=== PATIENT | female | born 1965 | race Caucasian/White ===

== ENCOUNTER 2023-10-14 15:04 | Outpatient (RCR) | payer MEDICARE, MEDICAID, SELFPAY | END 2023-11-21 11:41 | disposition home or self-care (01) | LOC: PT 15:04 | PROVIDERS: PCP Nurse Practitioner Family; Visit Provider Nurse Practitioner Family | DX: R29.898 Other symptoms and signs involving the musculoskeletal system (principal) | CPT/HCPCS: 97110; 97112; 97163 ==

== ENCOUNTER 2024-01-25 11:12 | Outpatient (OUT) | payer MEDICARE, MEDICAID, SELFPAY ==
--- OUTSIDE RECORDS SUMMARY | 2024-01-25 11:33 | XMS_ITS | CCD ---
Author Organization [facility] Care Team Providers Care Charging Car Operator Name Role Phone NANCY MACK Attending Unavailable NANCY MACK Consulting Unavailable NANCY MACK Admitting Unavailable TOMEKA SCHNEIDER V Consulting Unavailable Nan Rueda Consulting Unavailable Hannah Damico Consulting Unavailable Mehreen Henry Unavailable [facility], Bakari Qureshi Primary Care Provider MD Eloy Roa Attending Provider Unavailable Unavailable Unavailable Allergies Allergy Classification Reported Allergen(s) Allergy Type Date of Onset Reaction(s) Facility (2 sources) Penicillins Allergy to substance 4 Hives [facility] (2 sources) Serotonin Reuptake Inhibitors (Ssris) Propensity to adverse reactions 0 Unknown Reaction [facility] (2 sources) Serotonin 5HT-3 Antagonists Allergy to substance 4 Unknown Reaction [facility] Medications Current Medications Medication Drug Class(es) Dates Sig (Normalized) Sig (Original) ARIPiprazole 15 mg oral tablet (2 sources) Atypical Antipsychotic Start: 09-30-2023 take 1 tablet by mouth once daily Aripiprazole (Abilify) 15 mg tablet Active 15 MG PO Daily September 30, 2023 12:00am Abilify Active benztropine mesylate 0.5 mg oral tablet (2 sources) Anticholinergic, Antihistamine Start: 06-21-2018 End: 01-04-2020 take 0.5 mg by mouth every six hours Benztropine Active 0.5 MG Oral Q6H June 21, 2018 12:02pm docusate sodium 100 mg oral capsule (2 sources) Start: 05-16-2018 End: 09-30-2023 take 100 mg by mouth once daily Docusate Sodium Active 100 MG Oral Daily May 16, 2018 9:15am Glucometer (1 source) Start: 03-24-2017 Glucometer as directed BID Mar, Active haloperidol 1 mg oral tablet (1 source) Typical Antipsychotic Start: 01-04-2020 take 1 mg by mouth three times daily Haloperidol Active 1 MG PO Three times daily January 04, 2020 12:00am hydroCHLOROthiazide 12.5 mg / lisinopril 20 mg oral tablet (1 source) Thiazide Diuretic, Angiotensin Converting Enzyme Inhibitor Start: 09-30-2023 take 2 tablets by mouth once daily Lisinopril-Hydr ochlorothiazide Active 2 TAB PO Daily September 30, 2023 12:00am lidocaine 0.05 mg/mg medicated patch (2 sources) Antiarrhythmic, Amide Local Anesthetic Start: 10-31-2018 End: 01-04-2020 apply 1 dose topically once daily Lidocaine Active 1 PATCH Topical Daily 7 October 31, 2018 11:04am leave on most painful area for 12 hrs lisinopril 2.5 mg oral tablet (3 sources) Angiotensin Converting Enzyme Inhibitor Start: 05-16-2018 take 5 mg by mouth once daily Lisinopril Active 5 MG Oral Daily May 16, 2018 12:16pm Start: 05-16-2018 End: 09-30-2023 take 10 mg by mouth once daily Lisinopril Discontinued 10 MG PO Daily May 16, 2018 1:00am September 30, 2023 2:27pm take 1 tablet by benji th once daily Lisinopril 2.5 MG 1 tablet Once a day Orally 30 day(s) Active magnesium oxide 400 mg oral tablet (2 sources) Start: 10-31-2018 End: 01-04-2020 take 400 mg by mouth once daily Magnesium Oxide Active 400 MG Oral Daily 30 October 31, 2018 10:58am metFORMIN hydrochloride 1000 mg oral tablet (3 sources) Biguanide Start: 04-07-2017 take 1000 mg by mouth twice daily Metformin Active 1000 MG PO Twice daily May 16, 2018 1:00am mirtazapine 15 mg oral tablet (2 sources) Start: 06-03-2018 End: 01-04-2020 take 45 mg by mouth once daily at bedtime Mirtazapine Active 45 MG Oral Daily at bedtime 42 14 June 03, 2018 10:58am 24 hr NIFEdipine 90 mg extended release oral tablet (3 sources) Dihydropyridine Calcium Channel Jarred Start: 09-30-2023 take 90 mg by mouth once daily Nifedipine Active 90 MG PO Daily September 30, 2023 12:00am Start: 01-04-2020 End: 09-30-2023 take 60 mg by mouth once daily Nifedipine Discontinued 60 MG PO Daily January 04, 2020 12:00am September 30, 2023 2:24pm Procardia Active omeprazole 20 mg delayed release oral capsule (2 sources) Proton Pump Inhibitor Start: 10-10-2018 End: 01-04-2020 take 20 mg by mouth once daily Omeprazole Active 20 MG Oral Daily October 10, 2018 2:11pm swallow whole; do not crush, chew, dissolve, or cut/break promethazine hydrochloride 25 mg oral tablet (2 sources) Phenothiazine Start: 10-10-2018 End: 01-04-2020 take 25 mg by mouth every four to six hours Promethazine Active 25 MG Oral EVERY 4-6 HOURS October 10, 2018 2:11pm QUEtiapine 100 mg oral tablet (4 sources) Atypical Antipsychotic Start: 10-31-2018 End: 01-04-2020 take 100 mg by mouth three times daily Quetiapine Active 100 MG Oral Three times daily 90 October 31, 2018 10:58am Start: 06-21-2018 End: 10-31-2018 take 200 mg by mouth three times daily Quetiapine Discontinued 200 MG PO Three times daily June 21, 2018 1:00am October 31, 2018 11:03am Start: 05-16-2018 End: 06-03-2018 take 1 tablet by mouth at bedtime Quetiapine (Seroquel) 300 mg Tablet Discontinued 300 MG PO Bedtime May 16, 2018 1:00am June 03, 2018 11:59am rosuvastatin calcium 10 mg oral tablet (1 source) HMG-CoA Reductase Inhibitor Start: 09-30-2023 take 10 mg by mouth once daily Rosuvastatin Active 10 MG PO Daily September 30, 2023 12:00am sucralfate 1000 mg oral tablet (2 sources) Aluminum Complex Start: 10-10-2018 End: 01-04-2020 take 1 g by mouth four times daily 1 hour(s) before bedtime Sucralfate Active 1 GM Oral Four times daily 112 October 10, 2018 2:11pm administer 1 hour before meals and at bedtime Completed/Discontinued Medications Medication Drug Class(es) Dates Sig (Normalized) Sig (Original) ALPRAZolam 1 mg oral tablet (2 sources) Benzodiazepine Start: 05-16-2018 End: 06-03-2018 take 1 mg by mouth four times daily Alprazolam Discontinued 1 MG PO Four times daily May 16, 2018 1:00am June 03, 2018 11:59am amLODIPine 5 mg oral tablet (2 sources) Dihydropyridine Calcium Channel Jarred Start: 05-16-2018 End: 05-16-2018 take 5 mg by mouth once daily Amlodipine Discontinued 5 MG PO Daily May 16, 2018 1:00am May 16, 2018 1:15pm aspirin 81 mg oral tablet (1 source) Platelet Aggregation Inhibitor, Nonsteroidal Anti-inflammatory Drug take 1 tablet by mouth once daily Baby Aspirin 81 MG 1 tablet Orally Once a day Not-Taking 24 hr buPROPion hydrochloride 150 mg extended release oral tablet (3 sources) Aminoketone Start: 01-05-2020 End: 09-30-2023 take 450 mg by mouth once daily Bupropion Hcl Discontinued 450 MG PO Daily January 05, 2020 12:00am September 30, 2023 2:28pm Start: 05-16-2018 take 300 mg by mouth once anusha y Bupropion Hcl Active 300 MG Oral Daily May 16, 2018 9:15am Start: 05-16-2018 End: 01-05-2020 take 1 tablet by mouth once daily Bupropion Hcl (Wellbutrin Sr) 150 mg Tablet Sustained-Release 12 Hr Discontinued 450 MG PO Daily May 16, 2018 1:00am January 05, 2020 6:20am cephalexin 500 mg oral capsule (1 source) Cephalosporin Antibacterial Start: 10-10-2018 End: 10-31-2018 take 1 capsule by mouth twice daily Cephalexin (Keflex) 500 mg capsule Discontinued 500 MG PO Twice daily 14 October 10, 2018 12:00am October 31, 2018 11:03am chlorproMAZINE hydrochloride 50 mg oral tablet (1 source) Phenothiazine Thorazine 50 mg tab po one in AM, one at 5pm and 2 tabs at HS Not-Taking cholecalciferol 0.125 mg oral capsule (1 source) Vitamin D Start: 06-03-2018 End: 10-10-2018 take 5000 [IU] by mouth once daily Cholecalciferol (Vitamin D3) Discontinued 5000 UNIT PO Daily 14 June 03, 2018 1:00am October 10, 2018 10:38am DELETED Baclofen 2%, Cyclobenzaprine HCl 2%, Diclofenac Na 3%, Gabapentin 6%, Lidocaine HCl 2% (1 source) Start: 06-23-2017 DELETED Baclofen 2%, Cyclobenzaprine HCl 2%, Diclofenac Na 3%, Gabapentin 6%, Lidocaine HCl 2% as directed Topical apply 1-2 gm every 6-8 hours as needed for pain relief for 30 days Jun, Not-Taking diclofenac sodium 0.01 mg/mg topical gel (1 source) Nonsteroidal Anti-inflammatory Drug Start: 12-07-2017 Diclofenac Sodium 1 % as directed Transdermal APPLY 1-2 GRAM EVERY 6-8 HOURS NEEDED FOR PAIN RELIEF for 100 GRAM Nov, Not-Taking gabapentin 600 mg oral tablet (4 sources) Anti-epileptic Agent Start: 06-16-2017 End: 05-16-2018 take 600 mg by mouth three times daily Gabapentin Discontinued 600 MG PO Three times daily May 16, 2018 1:00am May 16, 2018 1:15pm glipiZIDE 10 mg oral tablet (2 sources) Sulfonylurea Start: 05-16-2018 End: 10-10-2018 take 10 mg by mouth twice daily Glipizide Discontinued 10 MG PO Twice daily May 16, 2018 1:00am October 10, 2018 10:38am nortriptyline 25 mg oral capsule (2 sources) Tricyclic Antidepressant Start: 05-16-2018 End: 06-03-2018 take 1 capsule by mouth once daily Nortriptyline (Pamelor) 25 mg Capsule Discontinued 75 MG PO Daily May 16, 2018 1:00am June 03, 2018 11:59am take 3 capsules by m outh every twenty-four hours Nortriptyline HCl 25 mg 3 capsules Orall y Once a day Not-Taking OLANZapine 5 mg oral tablet (2 sources) Atypical Antipsychotic Start: 06-21-2018 End: 10-10-2018 take 5 mg by mouth once daily at bedtime Olanzapine Discontinued 5 MG PO Daily at bedtime June 21, 2018 1:00am October 10, 2018 10:39am take 2 tablets by mo uth once daily at bedtime ZyPREXA 5 mg 2 tablet Orally QHS Not-Jose M ing OXcarbazepine 150 mg oral tablet (1 source) Anti-epileptic Agent Start: 01-04-2020 End: 09-30-2023 take 150 mg by mouth twice daily Oxcarbazepine Discontinued 150 MG PO Twice daily January 04, 2020 12:00am September 30, 2023 2:27pm pramipexole dihydrochloride 0.125 mg oral tablet (1 source) Nonergot Dopamine Agonist Start: 01-04-2020 End: 09-30-2023 take 0.125 mg by mouth once daily at bedtime Pramipexole Discontinued 0.125 MG PO Daily at bedtime January 04, 2020 12:00am September 30, 2023 2:27pm propranolol hydrochloride 10 mg oral tablet (1 source) beta-Adrenergic Jarred Start: 01-04-2020 End: 09-30-2023 take 10 mg by mouth once daily Propranolol Discontinued 10 MG PO Daily January 04, 2020 12:00am September 30, 2023 2:27pm SITagliptin 100 mg oral tablet (1 source) Dipeptidyl Peptidase 4 Inhibitor Start: 04-07-2017 take 1 tablet by mouth every twenty-four hours Januvia 100 MG 1 tablet Orally Once a day for 30 day(s) Mar, Not-Taking tiZANidine 4 mg oral tablet (1 source) Central alpha-2 Adrenergic Agonist Start: 01-04-2020 End: 09-30-2023 Tizanidine Discontinued 4 MG PO every 6 to 8 hours January 04, 2020 12:00am September 30, 2023 2:27pm traZODone hydrochloride 50 mg oral tablet (5 sources) Serotonin Reuptake Inhibitor Start: 01-04-2020 End: 09-30-2023 take 150 mg by mouth once daily at bedtime Trazodone Discontinued 150 MG PO Daily at bedtime January 04, 2020 10:32pm September 30, 2023 2:28pm Start: 10-31-2018 End: 01-04-2020 take 50 mg by mouth once daily at bedtime Trazodone Active 50 MG Oral Daily at bedtime October 31, 2018 10:58am Start: 06-03-2018 End: 10-31-2018 take 100 mg by mouth once daily at bedtime Trazodone Discontinued 100 MG PO Daily at bedtime 14 June 03, 2018 1:00am October 31, 2018 11:03am take 1 tablet by benji once daily at bedtime as needed traZODone HCl 200 mg 1 tablet at bedtime as needed Orally Once a day Not-Taking trifluoperazine 5 mg oral tablet (1 source) Phenothiazine Start: 06-03-2018 End: 06-21-2018 take 5 mg by mouth once daily at bedtime Trifluoperazine Discontinued 5 MG PO Daily at bedtime 14 June 03, 2018 1:00am June 21, 2018 1:02pm Problems Active Problems Problem Classification Problem Date Documented Date Episodic/Chronic Acute and unspecified renal failure (1 source) Acute renal failure syndrome; Translations: [Acute kidney injury] Episodic Anxiety disorders (3 sources) Panic disorder; Translations: [Anxiety] 01-05-2020 Chronic Chronic kidney disease (3 sources) Chronic kidney disease stage 3; Translations: [Stage 3 chronic kidney disease] 01-05-2020 Chronic Coagulation and hemorrhagic disorders (1 source) Thrombocytopenic disorder; Translations: [Thrombocytopenia, unspecified] 10-28-2018 Chronic Crushing injury or internal injury (1 source) Injury of kidney; Translations: [Acute kidney injury] Episodic Diabetes mellitus with complications (2 sources) Type 2 diabetes mellitus; Translations: [Type 2 diabetes mellitus with diabetic nephropathy] 09-30-2023 Chronic Diabetes mellitus without complication (4 sources) Diabetes mellitus; Translations: [Diabetes mellitus without complication] 01-05-2020 Chronic Diseases of white blood cells (1 source) Leukocytosis; Translations: [Elevated white blood cell count, unspecified] 01-05-2020 Chronic Disorders of lipid metabolism (2 sources) Hyperlipidemia; Translations: [Hyperlipidemia, unspecified] 01-05-2020 Chronic Essential hypertension (3 sources) Hypertensive disorder; Translations: [Hypertension, unspecified] 01-05-2020 Chronic Fluid and electrolyte disorders (8 sources) Hyponatremia; Translations: [Metabolic acidosis, increased anion gap (IAG)] 10-30-2018 Episodic Hepatitis (1 source) Chronic hepatitis C; Translations: [Chronic viral hepatitis C] Chronic Hepatitis (3 sources) Viral hepatitis C; Translations: [Unspecified viral hepatitis C without hepatic coma] 10-28-2018 Episodic Hypertension with complications and secondary hypertension (2 sources) Hypertensive renal disease; Translations: [Hypertensive chronic kidney disease with stage 1 through stage 4 chronic kidney disease, or unspecified chronic kidney disease] 09-30-2023 Chronic Mood disorders (3 sources) Recurrent major depression; Translations: [Major depressive disorder, recurrent, unspecified] 10-28-2018 Chronic Nausea and vomiting (1 source) Nausea; Translations: [Chemotherapy-induced nausea] Episodic Nonspecific chest pain (4 sources) Chest pain, unspecified; Translations: [Other chest pain] Onset: 05-28-2020 Episodic Nutritional deficiencies (2 sources) Vitamin D deficiency; Translations: [Vitamin D deficiency, unspecified] 09-30-2023 Chronic Nutritional deficiencies (2 sources) Decreased vitamin D; Translations: [Other specified abnormal findings of blood chemistry] 05-22-2018 Episodic Other circulatory disease (2 sources) Low blood pressure; Translations: [Hypotension, unspecified] 10-28-2018 Episodic Other hereditary and degenerative nervous system conditions (1 source) Restless legs; Translations: [Restless leg] Chronic Other liver diseases (2 sources) Alkaline phosphatase raised; Translations: [Abnormal levels of other serum enzymes] 05-22-2018 Episodic Other liver diseases (2 sources) ALT (SGPT) level raised; Translations: [Elevated alanine aminotransferase (ALT) level] 05-22-2018 Episodic Other nervous system disorders (2 sources) Disorder of brain; Translations: [Encephalopathy, unspecified] 10-30-2018 Chronic Other nervous system disorders (1 source) Chronic pain; Translations: [Other chronic pain] Chronic Other nervous system disorders (1 source) Neuropathy; Translations: [Polyneuropathy, unspecified] Chronic Other nutritional; endocrine; and metabolic disorders (2 sources) Hypomagnesemia; Translations: [Hypomagnesemia] 10-30-2018 Chronic Other nutritional; endocrine; and metabolic disorders (3 sources) Obesity; Translations: [Obesity (BMI 30-39.9)] 05-22-2018 Chronic Other nutritional; endocrine; and metabolic disorders (1 source) Psychogenic polydipsia; 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] 01-06-2020 Episodic Other screening for suspected conditions (not mental disorders or infectious disease) (2 sources) Platelet count below reference range; Translations: [Abnormal coagulation profile] Onset: 05-30-2020 Episodic Other upper respiratory infections (1 source) Sinusitis; Translations: [Chronic infection of sinus NOS] Chronic Residual codes; unclassified (1 source) Sleep apnea; Translations: [Sleep apnea, unspecified] Chronic Residual codes; unclassified (2 sources) Altered mental status; Translations: [Altered mental status, unspecified] 10-27-2018 Episodic Spondylosis; intervertebral disc disorders; other back problems (2 sources) Degeneration of lumbar intervertebral disc; Translations: [Other intervertebral disc degeneration, lumbar region] Chronic Substance-related disorders (4 sources) Nicotine dependence, cigarettes, uncomplicated; Translations: [Drug abuse] Onset: 05-30-2020 Chronic Unclassified (1 source) Other abnormal findings in urine; Translations: [OTHER ABNORMAL FINDINGS IN URINE] Onset: 05-30-2020 Past or Other Problems Problem Classification Problem Date Documented Date Episodic/Chronic Administrative/social admission (1 source) Counseling procedure with explicit context; Translations: [Tobacco abuse counseling] Episodic Headache; including migraine (1 source) Bilateral headache; Translations: [Bilateral headaches] Episodic Heart valve disorders (1 source) Heart murmur; Translations: [Heart murmur] Episodic Immunizations and screening for infectious disease (1 source) Contact with and (suspected) exposure to other viral communicable diseases Onset: 08-21-2021 Resolved: 08-21-2021 Episodic Influenza (1 source) Influenza due to other identified influenza virus with other respiratory manifestations Onset: 08-21-2021 Resolved: 08-21-2021 Episodic Other connective tissue disease (2 sources) Pain in limb; Translations: [Lower extremity pain, right] Episodic Other connective tissue disease (1 source) Myofascial pain; Translations: [Myalgia] Episodic Other nervous system disorders (1 source) Tremor; Translations: [Tremor] Episodic Other non-traumatic joint disorders (1 source) Ankle pain; Translations: [Pain in unspecified ankle and joints of unspecified foot] Episodic Residual codes; unclassified (1 source) Sleep deprivation; Translations: [Problems related to lack of adequate sleep] Episodic Spondylosis; intervertebral disc disorders; other back problems (1 source) Low back pain; Translations: [Low back pain] Episodic Results Test Name Value Interpretation Reference Range Facility Patient Letter FTon 2020 Patient Letter [facility] [place] December 19, 2020 CASSY VALLEJO [address] [address] CASSY VALLEJO 1965 Dear Cassy, This is a SECOND ATTEMPT to remind you that you are due for an appointment with Dr. Baumann or Dr. Zuleta. Please call [facility] at [phone] to schedule an appointment at your earliest convenience. Thank you, [facility] Normal [facility] Reminderson 12-19-2020 Reminders - From: Melinda Hernández MA To: [facility] - Reminders/Recalls; Sent: 02/09/2020 07:53:13 EDT Show up: 11/13/2020 07:53:00 EDT Subject: BAD REMINDER RECALL DECEMBER 2020 Due Date/Time: 12/13/2020 07:53:00 EDT Reminder/Recall DR BAUMANN 3 YR COLON 12/30/2020 first recall letter second recall letter Normal [facility] Patient Letter FTMCon 2020 Patient Letter FT November 13, 2020 CASSY VALLEJO [address] [place] [address] CASSY VALLEJO 1965 Dear Cassy, This is a reminder that you are due for an appointment with Dr. Baumann or Dr. Zuleta. Please call [facility] at [phone] to schedule an appointment at your earliest convenience. Thank you, [facility] Reminder returned. Undeliverable. No forwarding address. Normal [facility] CULTURE URINEon 05-30-2020 CULTURE URINE Isolate 1 Escherichia coli >100,000 cfu/ml of ORGANISM 1 Escherichia coli ANTIBIOTIC M.I.C RX STATUS Ampicillin >=32 R F Ampicillin/Sulbactam >=32 R F Piperacillin/Tazobactam <=4 S F Cefazolin <=4 S F Ceftazidime <=1 S F Ceftriaxone <=1 S F Ertapenem <=0.5 S F Imipenem <=0.25 S F Amikacin <=2 S F Gentamicin <=1 S F Tobramycin <=1 S F Ciprofloxacin <=0.25 S F Levofloxacin 1 S F Nitrofurantoin <=16 S F Trimethoprim/Sulfamethox azole <=20 S F Normal [facility] Comment on above: Performed By: #### U RCX #### [facility] [id number] ABD/PELVIS WO CONon 05-28 CT ABD/PELVIS WO CON EXAMINATION: CT ABD/PELVIS WO CON HISTORY: Left flank pain. COMPARISON: None. TECHNIQUE: CT examination of the abdomen and pelvis without IV contrast. Coronal and sagittal reformations were performed. Dose reduction techniques were achieved by using automated exposure control and/or adjustment of mA and/or kV according to patient size and/or use of iterative reconstruction technique. FINDINGS: The lung bases are clear. Lower mediastinal structures are normal. The liver, spleen, adrenal glands, pancreas, gallbladder show normal unenhanced characteristics. The margins of the liver are mildly lobulated. The kidneys are symmetric in size and show no calcifications or hydronephrosis. No stones are seen in the ureters. Scattered calcified plaque is seen in the aorta and branch vessels. The large and small bowel are normal caliber. A normal appendix is seen in the right lower quadrant. Surgical changes of hysterectomy. The urinary bladder is normal. There is no free air or free fluid and no inflammatory stranding is seen. No suspicious or destructive bone lesions are seen. Note is made of an intramuscular lipoma in the right gluteal muscles. IMPRESSION: Unremarkable evaluation of urinary tract system. No abnormality is seen to clearly account for the symptoms. Mild lobulations in the contour the liver. This is of uncertain etiology but might indicate early changes of cirrhosis. This should be correlated with appropriate labs and clinical evaluation. Electronically authenticated by: NAN RUEDA Date: 2020-05-28 13:57 Normal [facility] CTA CHEST WO W CONon 020 CTA CHEST WO W CON EXAMINATION: CTA CHEST WO W CON HISTORY: CHEST PAIN, UNSPECIFIED , shortness of breath, elevated d-dimer COMPARISON: No relevant comparison available. TECHNIQUE: Axial, Coronal, and Sagittal images were created without and with IV contrast. Dose reduction techniques were achieved by using automated exposure control and/or adjustment of mA and/or kV according to patient size and/or use of iterative reconstruction technique. 66 mL Omnipaque 350 FINDINGS: LUNGS: Scattered subcentimeter pulmonary nodules, the largest is subpleural in location measuring 5 x 4 mm posterior right upper lobe axial image #18. PLEURA: No mass, effusion, or pneumothorax. VASCULATURE: Suboptimal opacification of the central pulmonary arterial tree with no definite filling defects BASILIO: No mass or adenopathy. MEDIASTINUM: No mass or adenopathy. CARDIAC: No enlargement, pericardial thickening, or significant calcification. AORTA: No aneurysm or dissection. CHEST WALL: No mass or axillary adenopathy. BONES: No bone lesion or fracture. LIMITED ABDOMEN: 1.4 cm mass medial limb of the left adrenal gland. Nodular hepatic contour suggesting hepatocellular disease OTHER: Negative. IMPRESSION: No central pulmonary embolus Scattered subcentimeter pulmonary nodules the largest 5 x 4 mm the right upper lobe, nonspecific Electronically authenticated by: TOMEKA SCHNEIDER Date: 2020-05-28 15:10 Normal [facility] D-DIMERon 05-28-2020 D-DIMER COMMENTS SEE BELOW Normal [facility] Comment on above: Result Comment: Incr eases in D-Dimer concentration observed with thromboembolic events can be variable due to localization, size, and age of the thrombus. Therefore, a thromboembolic event cannot be diagnosed with certainty on the basis of the reference range. D-Dimers may also be elevated for a variety of disorders including: advanced age, , coronary disease, cancer, liver disease, infection, inflammation, hematoma, DIC, trauma, post-surgery, diabetes, thrombolytic or anticoagulant therapy, stress, and generalized hospitalization. Performed By: #### D DIM #### [facility] [address] [place] [address] Finnjesus Fong Fibrin D-dimer FEU IA (Bld) [Mass/Vol] 0.74 mg/L FEU Critically high 0.19-0.50 [facility] Comment on above: Result Comment: Test repeated. Critical value verified. Performed By: #### D DIM #### [facility] [address] [place] [address] Finn Hetal ER URINE PROFILEon 0 Bilirubin [Mass/Vol] Negative Normal NEGATIVE [facility] Comment on above: Performed By: #### U MICRO, ERUR #### [facility] [address] [place] [address] Finn Hetal BLOOD MODERATE Abnormal NEGATIVE [facility] Comment on above: Performed By: #### U MICRO, ERUR #### [facility] [address] [place] [address] Finn Hetal Clarity (U) CLEAR Normal CLEAR [facility] Comment on above: Performed By: #### U MICRO, ERUR #### [facility] [address] [place] [address] Finn Hetal Color (U) YELLOW Normal YELLOW [facility] Comment on above: Performed By: #### U MICRO, ERUR #### [facility] [address] [place] [address] Finn Hetal ERUAHD A micrscopic examina tion will be performed if indicated. Normal [facility] Comment on above: Performed By: #### U MICRO, ERUR #### [facility] [address] [place] [address] Finn Hetal Glucose [Mass/Vol] Negative Normal NEGATIVE [facility] Comment on above: Performed By: #### U MICRO, ERUR #### [facility] [address] [place] [address] Finn Hetal Ketones Ql (U) Negative Normal NEGATIVE [facility] Comment on above: Performed By: #### U MICRO, ERUR #### [facility] [address] [place] [address] Finn Hetal Nitrite Ql (U) Positive Abnormal NEGATIVE [facility] Comment on above: Performed By: #### U MICRO, ERUR #### [facility] [address] [place] [address] Finn Hetal pH (Bld) 6.0 Normal 5-9 [facility] Comment on above: Performed By: #### U MICRO, ERUR #### [facility] [address] [place] [address] Finn Hetal Protein (U) [Mass/Vol] 100 mg/dL Abnormal NEGATIVE/ TRACE [facility] Comment on above: Performed By: #### U MICRO, ERUR #### [facility] [address] [place] [address] Finn Hetal SPEC GRAVITY >=1.030 Abnormal 1.005-<=1.025 [facility] Comment on above: Performed By: #### U MICRO, ERUR #### [facility] [address] [place] [address] Finnjesus Fong UR MICRO IND INDICATED Normal [facility] Comment on above: Performed By: #### U MICRO, ERUR #### [facility] [address] [place] [address] Finnjesus Fong Urobilinogen Qn (U) 0.2 EU/dl Normal 0.2 - 1.0 [facility] Comment on above: Performed By: #### U MICRO, ERUR #### [facility] [address] [place] [address] Finnjesus Fong WBC (Bld) [#/Vol] Negative Normal NEGATIVE [facility] Comment on above: Performed By: #### U MICRO, ERUR #### [facility] [address] [place] [address] Finn Hetal URINE MICROSCOPIC ONLYon Bacteria LM.HPF (Urine sed) [#/Area] MODERATE Abnormal NONE SEEN [facility] Comment on above: Performed By: #### U MICRO, ERUR #### [facility] [address] [place] [address] Finn Hetal CAST NONE SEEN Normal NONE SEEN [facility] Comment on above: Performed By: #### U MICRO, ERUR #### [facility] [address] [place] [address] Finn Hetal Crystals LM Nom (Urine sed) NONE SEEN Normal NONE SEEN [facility] Comment on above: Performed By: #### U MICRO, ERUR #### [facility] [address] [place] [address] Finn Hetal CULTURE INDICATED Normal [facility] Comment on above: Performed By: #### U MICRO, ERUR #### [facility] [address] [place] [address] Finn Hetal Epithelial cells LM.HPF (Urine sed) [#/Area] FEW Abnormal NONE SEEN /RARE [facility] Comment on above: Performed By: #### U MICRO, ERUR #### [facility] [address] [place] [address] Finn Hetal MUCOUS TRACE Abnormal NONE SEEN [facility] Comment on above: Performed By: #### U MICRO, ERUR #### [facility] [address] [place], [place] [address] Finn Fong RBC (U) [#/Vol] 2-5 Abnormal 0-2 [facility] Comment on above: Performed By: #### U MICRO, ERUR #### [facility] [address] [place], [place] [address] Finn Fong WBC (Bld) [#/Vol] 5-10 Abnormal NONE SEEN [facility] Comment on above: Performed By: #### U MICRO, ERUR #### [facility] [address] [place], [place] [address] Finn Fong XR CHEST 1 Von 05-28-2020 XR CHEST 1 V EXAM: XR CHEST 1 V 05/28/2020. HISTORY: CHEST PAIN, UNSPECIFIED COMPARISON: None. FINDINGS: Cardiomediastinal contours are within normal limits. No dense consolidation, effusion, edema, failure or pneumothorax based on frontal image alone. No acute osseous abnormality. Retrocardiac region is somewhat difficult to accurately evaluate due to underpenetration. IMPRESSION: No acute cardiopulmonary process based on frontal image alone. Electronically authenticated by: HANNAH DAMICO Date: 2020-05-28 13:24 Normal [facility] PROGRESSon 11-16-2018 Protein mass conc HNO ID: [id number] Author: Ezra Murray Service: ? Author Type: Physician Type: Progress Notes Filed: 11/16/2018 1:53 PM Note Text: Cassy Vallejo : 1965 Retirement: [facility] PCP: esperanza Date of Last Visit: 10/31 PAST MEDICAL HISTORY Diagnosis Date - Anxiety - Chronic viral hepatitis (HCC) - Depression - Difficulty walking - Edema - Essential hypertension - Fibromyalgia - GERD (gastroesophageal reflux disease) - Hyperlipidemia - Metabolic encephalopathy - Onychomycosis - Pain in toes of both feet - Panic disorder - Suicidal ideations - Type II diabetes mellitus (HCC) Current Outpatient Medications: tuberculin (TUBERSOL) 5 tub. unit /0.1 mL injection 5 Units by INTRADERMAL route one time only. lisinopril (ZESTRIL, PRINIVIL) 10 mg tablet Take 10 mg by mouth once daily. omeprazole (PRILOSEC) 20 mg capsule Take 20 mg by mouth once daily. buPROPion XL (WELLBUTRIN XL) 300 mg 24 hr tablet Take 300 mg by mouth once daily. magnesium oxide 400 mg magnesium cap Take by mouth. mirtazapine (REMERON) 45 mg tablet Take 45 mg by mouth daily at bedtime. benztropine (COGENTIN) 0.5 mg tablet Take 0.5 mg by mouth twice daily. gabapentin (NEURONTIN) 600 mg tablet Take 600 mg by mouth three times daily. QUEtiapine (SEROQUEL) 200 mg tablet Take 200 mg by mouth twice daily. traZODone (DESYREL) 100 mg tablet Take 100 mg by mouth daily at bedtime. ondansetron (ZOFRAN) 4 mg tablet Take 4 mg by mouth every 8 hours as needed. sucralfate (CARAFATE) 1 gram tablet Take 1 g by mouth four times daily. metFORMIN (GLUCOPHAGE) 1,000 mg tablet Take 1,000 mg by mouth daily with breakfast. No current facility-administered medications for this visit. ALLERGIES Allergen Reactions - Penicillins Unknown Subjective: Cassy is a 53 year old female year old DIABETIC who presents today for evaluation and treatment of painful digital nail deformities as well as generalized foot care. The patient has been unable to provide self nail care due to the severe nature of deformity which causes pressure and limits the patient's ability to walk in shoe gear without pain. Patient has attempted self debridement using a pumice stone and specialized nail instrument with no success. Patient advised not to attempt self care. Class B Findings: Decrease or absence of hair growth, Skin texture (thin, shiny) and Nail changes (thickening) Objective: Each digital nail on the right 1 and the left 1 is elongated, thickened, ridged, lysing with friable subungual debris which, after debridement to underlying nail bed, reveals a characteristic fungal/yeast/mold odor and consistency. There is no surrounding cellulitis, deep incurvation, or evidence of bacterial infection. Class findings include diminished pedal pulses, lack of digital/pedal hair growth, the above noted nail changes, some telangectasias and lower leg edema bilaterally. Lower Extremity Edema: yes: b/l Assessment: Symptomatic onychomycosis digital nails toes 1 Rt 1 Lt. Examination of individual toenails: R5 is normal. R4 is normal. R3 is normal. R2 is normal. R1 is brittle, discolored, dystrophic, elongated, painful, yellow with subungual debris. L1 is brittle, discolored, dystrophic, elongated, painful, yellow, with subungual debris. L2 is normal. L3 is normal. L4 is normal. L5 is normal. Plan: The offending nail margins were mechanically and electrically debrided to the level of normal underlying nail bed with good relief obtained as evidenced by pain free palpation of the digits. The patient will be followed to maintain the length and thickness of their nails as best as possible. Patient relates painful ambulation. We will see her back on an as needed basis or sooner should problems arise. Ezra Murray DPM Encounter Diagnosis ICD-10-CM 1. Pain due to onychomycosis of toenail of left foot B35.1 DEBRIDEMENT OF NAIL(S), 1-5 M79.675 2. Pain due to onychomycosis of toenail of right foot B35.1 DEBRIDEMENT OF NAIL(S), 1-5 M79.674 3. Diabetes mellitus without complication (HCC) E11.9 DEBRIDEMENT OF NAIL(S), 1-5 Normal [facility] SURGICAL PATHOLOGYon 018 SURGICAL PATHOLOGY Specimen #: [id number] Physician: CLARITA GARIBAY M.D. [place] [id number] (01/11/2018)Liver, biopsy (A1-1 thru A1-3 and associated special stains)- Cirrhosis with changes consistent with steatohepatitis.COMMENTT manuel you for allowing us the opportunity to review this case inconsultation representing the liver biopsy from Cassy Vallejo, a [id number] with a history of hepatic fibrosis.The liver biopsy demonstrates a single core of hepatic parenchyma withextensive macrovesicular steatosis comprising approximately 70% of theparenchymal volume. A few ballooned hepatocytes are identified. No Malloryhyaline is identified. There is mild to moderate portal/septal and lobularinflammation composed of small, mature appearing lymphocytes. Nocholestasis or bile duct injury is observed. No interface activity isobserved. The interlobular bile ducts show no significant injury. Centralveins are unremarkable. The iron stain is negative for storage iron. Thetrichrome stain highlights bridging fibrosis and early cirrhosis.Overall, the feature are consistent with steatohepatitis with bridgingfibrosis and early cirrhosis. Steatohepatitis is a pattern of injury seenmost commonly with metabolic disease, obesity, diabetes, hyperlipidemia,and secondary to toxins/drugs. Correlation with clinical and serologicfindings remains essential. Thank you for sending this case in consultation. Please do not hesitate tocontact the GI Consultation Service at [phone] with questions or ifadditional follow up information becomes available. This case was reviewedin conjunction with the GI pathology fellow, Bobbi Coe D.O./RW//01-19-2018Santana Ceballos M.D., Ph.D.(Electronic Signature) SPECIMEN SUBMITTEDA: 10 SLIDES [id number] CLINICAL DATAHepatic fibrosis.Patient ID #: Date of Report: 01/20/2018Date of Procedure: 01/18/2018Date of Receipt: 01/18/2018Submitted by: CLARITA GARIBAY M.D.Location: Diagnostic interpretation performed at [facility], [address] [place] [address]. Normal [facility] Comment on above: Performed By: #### S ####See report for performing lab information. Vital Signs Date Time Vital Sign Value Performing Clinician Facility 09-30-2023 14:040 Body height 162.56 cm [facility] [employer] [facility] 09-30-2023 14:21-0400 Body mass index (BMI) [Ratio] 41.2 kg/m2 [facility] Work Phone: [facility] 09-30-2023 14:21-0400 Body temperature 96.4 [degF] [facility] Work Phone: [facility] 09-30-2023 14:21-0400 Body weight 108.97 kg [facility] Work Phone: [facility] 09-30-2023 14:21-0400 Diastolic blood pressure 80 mm[Hg] [facility] Work Phone: [facility] 09-30-2023 14:21-0400 Heart rate 102 /min [facility] Work Phone: [facility] 09-30-2023 14:21-0400 Respiratory rate 16 /min [facility] Work Phone: [facility] 09-30-2023 14:21-0400 SaO2% (BldA) [Mass fraction] 96 % [facility] Work Phone: [facility] 09-30-2023 14:21-0400 Systolic blood pressure 115 mm[Hg] [facility] Work Phone: [facility] 08-21-2021 15:00-0500 Body height 160.02 cm Mehreen Henry Other [facility] Other 08-21-2021 15:00-0500 Body mass index (BMI) [Ratio] 43.4 kg/m2 Mehreen Henry Other [facility] Other 08-21-2021 15:00-0500 Body temperature 98.6 [degF] Mehreen Henry Other [facility] Other 08-21-2021 15:00-0500 Body weight 111.13 kg Mehreen Henry Other [facility] Other 08-21-2021 15:00-0500 Respiratory rate 18 /min Mehreen Henry Other [facility] Other 08-21-2021 15:00-0500 SaO2% (BldA) [Mass fraction] 97 % Mehreen Henry Other [facility] Other Encounters Encounter Date Encounter Type Care Provider Facility Start: 09-30-2023 End: 09-30-2023 ambulatory [facility] Work Phone: [facility] Work Phone: Start: 09-30-2023 End: 09-30-2023 Patient encounter procedure [facility] Work Phone: [facility] Work Phone: Start: 07-28-2023 Registered Recurring [facility] Work Phone: [facility] Start: 08-21-2021 End: 08-21-2021 ambulatory Mehreen Henry Other [facility] Other Start: 08-21-2021 Office outpatient vi sit 15 minutes Mehreen Henry [facility] Start: 05-28-2020 End: 05-28-2020 Patient encounter procedure NANCY MACK Facility: Plan of Treatment Date Care Activity Detail Author Renal function 1999 panel - Serum or Plasma [facility] enter US Kidney - bilateral [facility] Payers Date Payer Category Payer Unknown [id number] 1958 Medicaid [id number] 1958 Medicare [id number] Self-pay Self Pay [id number] Unknown [id number] Social History Date Type Detail Facility Tobacco smoking status [facility] Unknown if ever smoked [facility] Start: 1965 Sex Assigned At Female F [facility] Sex Assigned At Sex Assigned At Bir th [facility] Other Start: 09-30-2023 Tobacco smoking status NHIS Smoker (finding) [facility] Medical Equipment Procedure Code Equipment Code Equipment Origin al Text Equipment Identifier Dates Start: 03-24-2017 Goals Date Patient Goal Desired Activity /State Evaluation note 09-30-2023 Note Date & Type Note Facility 09-30-2023 Evaluation note Diagnosis Onset Date Chronic kidney disease, stage 3a acute Hypertensive nephropathy acu te Type 2 diabetes mellitus wit h diabetic nephropathy acute Vitamin D deficiency acute [facility] Work Phone: Evaluation note 08-21-2021 Note Date & Type Note Facility 08-21-2021 Evaluation note Encounter Date Diagnosis Assessment Notes Aug, Contact with and (suspected) exposure to other viral communicable diseases (ICD-10 - Z20.828) Aug, Influenza A (ICD-10 - J10.1) Drink plenty fluids, get plenty of rest. Take Tylenol or Motrin for aches pains or fevers. Follow-up with your family physician if no improvement in 2 to 3 days. Aug, Other Additional time spent conducting pre-visit phone call, screening for symptoms, instructions on social distancing, application and removal of PPE, and cleaning of examination room, equipment and supplies was preformed. Patient education given for testing methodology and results. Patient care instructions given in writting by [facility] Care At Home document. [facility] Other History general Narrative - Reported Note Date & Type Note Facility History general Narrative - Reported Type Medical History RLS Medical History HTN Medical History anxiety d/o Medical History depression Medical History diabetes mellitus Surgical History J CARLOS Surgical History wisdom teeth Surgical History tonsillectomy Hospitalization History depression Hospitalization History psych 12/2016 [facility] Other Summary Purpose Family History Relationship Condition Age at Onset Recorded Date/T [place] Not Specified Hypertension Unknown Relationship Condition Age at Onset Recorded Date/T [place] father Multiple myeloma Unknown father Malignant neoplasm Unknown Unknown Not Specified Hypertension Unknown Family history of mental disorder Unknown Advance Directives Advance Directive Response Recorded Date/ Time Advance Directives No December 01 10:07am Assessments No Assessments Information Available Chief Complaint and Reason for Visit Chief Complaint BH RENAL CKD 3 Reason for Visit Chronic kidney disea se, stage 3a Hypertensive nephropathy Type 2 diabetes mellitus with diabetic nephropathy Vitamin D deficiency Additional Source Comments INFORMATION SOURCE (unrecogn ized section and content) DATE CREATED AUTHOR 01/26/2018 [facility] DATE CREATED AUTHOR AUTHOR'S ORGANIZ ATION 11/21/2018 [facility] DATE CREATED AUTHOR AUTHOR'S ORGANIZ ATION 06/02/2020 [facility] DATE CREATED AUTHOR AUTHOR'S ORGANIZ ATION 12/20/2020 [facility] REASON FOR VISIT (unrecogniz ed section and content) BLACK STAN, SINUS CONGESTIO N, COUGH, SORE THROAT, H/A Care Teams (unrecognized sec tion and content) Team Status: Active Member Role Status Dates [facility] Primary Care Provider Active Team Status: Active Member Role Status Dates [facility] Primary Care Provider Active Start: July 28, 2023 Eloy Roa MD Attending Provider Active Start: July 28, 2023 Team Status: Inactive Member Role Status Dates [facility] Primary Care Provider Active Start: September 30, 2023 End: September 30, 2023 Monet Villagran MD Attending Provider Active Star t: September 30, 2023 End: September 30, 2023 Goals (unrecognized section and content) Goals may be documented in a n alternate section FOR RECORDS PERTAINING TO PATIENTS WHO ARE OR HAVE BEEN ENROLLED IN A CHEMICAL DEPENDENCY/SUBSTANCEABUSE PROGRAM, SOME INFORMATION MAY BE OMITTED. This clinical summary was aggregated from multiple sources. Caution should be exercised in using it in the provision of clinical care. This summary normalizes information from multiple sources, and as a consequence, information in this document may materially change the coding, format and clinical context of patient data. In addition, data may be omitted in some cases. CLINICAL DECISIONS SHOULD BE BASED ON THE PRIMARY CLINICAL RECORDS. [facility] [employer] [facility]. provides no warranty or guarantee of the accuracy or completeness of information in this document.
[2024-01-25 11:38] LABS: Hematocrit 40.5 % (36.0-48.0); Hemoglobin 13.9 g/dL (12.0-16.0); Mean Corpuscular HGB Conc 34.3 g/dL (29.9-35.2); Mean Corpuscular Hemoglobin 31.7 pg (26.7-34.0); Mean Corpuscular Volume 92.5 fL (81.0-99.0); Mean Platelet Volume 8.3 fL (9.5-13.5); Platelet Count 248 10^3/uL (150-450); Red Blood Count 4.38 10^6/uL (4.20-5.40); Red Cell Distribution Width 12.1 % (11.0-15.0); White Blood Count 13.3 10^3/uL (4.0-11.0)
[2024-01-25 11:52] LABS: Bilirubin Urine NEGATIVE (NEGATIVE); Blood Urine SMALL (NEGATIVE); Clarity Urine CLEAR (CLEAR); Color Urine LT. YELLOW (YELLOW); Glucose Urine UA NEGATIVE (NEGATIVE); Ketones Urine NEGATIVE (NEGATIVE); Leukocyte Esterase Urine TRACE (NEGATIVE); Nitrite Urine NEGATIVE (NEGATIVE); Protein Urine NEGATIVE (NEG/TRACE); Urobilinogen Urine 0.2 EU/dL (0.2-1.0)
[2024-01-25 12:20] LABS: Creatinine Urine Random 46.72 mg/dL (20.00-300.00); Protein Creatinine Ratio Urine 0.19; Total Protein Urine Random 8.8 mg/dL (<=11.9)
[2024-01-25 12:27] LABS: Anion Gap 14.3; BUN Creatinine Ratio 18.3; Calcium 9.4 mg/dL (8.5-10.1); Carbon Dioxide 26.3 mmol/L (21.0-32.0); Chloride 94 mmol/L (98-107); Estimated GFR (African America 51 (>=60); Estimated GFR (Non-African Ame 42 (>=60); Glucose 125 mg/dL (74-106); Magnesium 1.5 mg/dL (1.8-2.4); Phosphorus 3.3 mg/dL (2.6-4.7); Potassium 3.6 mmol/L (3.5-5.1); Sodium 131 mmol/L (136-145); Uric Acid 7.9 mg/dL (2.6-6.0)
[2024-01-26 10:11] LABS: PTH, Intact 39 pg/mL (15-65)
[2024-01-26 16:16] LABS: Microalbumin Urine Random <1.3 mg/dL (<=30.0)
== END 2024-01-25 11:13 | disposition home or self-care (01) ==
LOC: LAB 11:12
PROVIDERS: PCP Nurse Practitioner Family; Visit Provider Internal Medicine Nephrology
DX: I12.9 Hypertensive chronic kidney disease with stage 1 through stage 4 chronic kidney disease, or unspecified chronic kidney disease (principal); N18.31 Chronic kidney disease, stage 3a; E11.21 Type 2 diabetes mellitus with diabetic nephropathy
CPT/HCPCS: 36415; 80069; 81003; 82043; 82306; 82570; 83735; 83970; 84156; 84550; 85027

== ENCOUNTER 2024-01-27 09:33 | Outpatient (OUT) | payer MEDICARE, MEDICAID, SELFPAY ==
--- NOTE | 2024-01-27 09:43 | US_ITS ---
[address] [address] Patient Name: CASSY JOSEPH MRN: [id number] date: 1965 Sex: F Assigned Patient Location: US Current Patient Location: LAB Accession/Order Number: [id number] Exam Date: 01/27/2024 09:45 Report Date: 02/01/2024 07:26 At the request of: NON-STAFF PHYSICIAN Procedure: US renal BI EXAMINATION: US renal BI HISTORY: Stage 3A Chronic Kidney Disease COMPARISON: No relevant comparison available. TECHNIQUE: Ultrasound examination was performed of the bladder. FINDINGS: Right Kidney: Normal in size, contour and echotexture. 1.3 cm area of anechoic echogenicity in the lower pole, cortical cyst. The cortex measures 0.9 cm. No solid cortical mass or hydronephrosis. Height: 4.83 cm Length: 11.35 cm Width: 4.26 cm Left Kidney: Normal in size, contour and echotexture. 1.0 cm area of anechoic echogenicity in the upper pole, cortical cyst. The cortex measures 0.7 cm. No solid cortical mass or hydronephrosis Height: 4.54 cm Length: 10.63 cm Width: 4.87 cm Urinary bladder is normal. Volume 218 cc US/US renal BI IMPRESSION: Bilateral renal cortical atrophy Electronically authenticated by: TOMEKA SCHNEIDER Date: 02/01/2024 07:26
--- OUTSIDE RECORDS SUMMARY | 2024-01-27 09:46 | XMS_ITS | CCD ---
Author Organization [facility] Care Team Providers Care [employer] Mechanic Name Role Phone NANCY MACK Attending Unavailable NANCY MACK Consulting Unavailable NANCY MACK Admitting Unavailable TOMEKA SCHNEIDER V Consulting Unavailable Nan Rueda Consulting Unavailable Hannah Damico Consulting Unavailable Mehreen Henry Unavailable [facility], [facility] Qureshi Primary Care Provider MD Eloy Roa Attending Provider Unavailable Unavailable Unavailable Allergies Allergy Classification Reported Allergen(s) Allergy Type Date of Onset Reaction(s) Facility (2 sources) Penicillins Allergy to substance 4 Hives [facility] (2 sources) Serotonin Reuptake Inhibitors (Ssris) Propensity to adverse reactions 0 Unknown Reaction [facility] (2 sources) Serotonin 5HT-3 Antagonists Allergy to substance 4 Unknown Reaction [facility] Medications Current Medications Medication Drug [...] Facility Patient Letter FTon 2020 Patient Letter [facility] December 19, 2020 CASSY VALLEJO [address] [facility] [place] [address] CASSY VALLEJO 1965 Dear Cassy, This is a SECOND ATTEMPT to remind you that you are due for an appointment with Dr. Baumann or Dr. Zuleta. Please call [facility] at [phone] to schedule an appointment at your earliest convenience. Thank you, [facility] Normal [facility] Reminderson 12-19-2020 Reminders - From: Melinda Hernández MA To: [facility] - Reminders/Recalls; Sent: 02/09/2020 07:53:13 EDT Show up: 11/13/2020 07:53:00 EDT Subject: BAD REMINDER RECALL DECEMBER 2020 Due Date/Time: 12/13/2020 07:53:00 EDT Reminder/Recall DR BAUMANN 3 YR COLON 12/30/2020 first recall letter second recall letter Normal [facility] Patient Letter FTMCon 2020 Patient Letter FT November 13, 2020 CASSY VALLEJO [address] [place] [address] CASSY VALLEJO 1965 Dear Cassy, This is a reminder that you are due for an appointment with Dr. Baumann or Dr. Zuleta. Please call [facility] at [phone] to schedule an appointment at your earliest convenience. Thank you, [facility] Reminder returned. Undeliverable. No forwarding address. Normal [facility] CULTURE URINEon 05-30-2020 CULTURE URINE Isolate 1 [...] F Trimethoprim/Sulfamethox azole <=20 S F Normal [facility] Comment on above: Performed By: #### U RCX #### [facility] [id number] ABD/PELVIS WO CONon 05-28 [...] NAN RUEDA Date: 2020-05-28 13:57 Normal [facility] CTA CHEST WO W CONon 020 [...] TOMEKA SCHNEIDER Date: 2020-05-28 15:10 Normal [facility] D-DIMERon 05-28-2020 D-DIMER COMMENTS SEE BELOW Normal [facility] Comment on above: Result Comment: Incr [...] hospitalization. Performed By: #### D DIM #### [facility] [address] [place] [address] Finnjesus Fong Fibrin D-dimer FEU IA (Bld) [Mass/Vol] 0.74 mg/L FEU Critically high 0.19-0.50 [facility] Comment on above: Result Comment: Test repeated. Critical value verified. Performed By: #### D DIM #### [facility] [address] [place] [address] Finn Hetal ER URINE PROFILEon 0 Bilirubin [Mass/Vol] Negative Normal NEGATIVE [facility] Comment on above: Performed By: #### U MICRO, ERUR #### [facility] [address] [place] [address] Finn Hetal BLOOD MODERATE Abnormal NEGATIVE [facility] Comment on above: Performed By: #### U MICRO, ERUR #### [facility] [address] [place] [address] Finn Hetal Clarity (U) CLEAR Normal CLEAR [facility] Comment on above: Performed By: #### U MICRO, ERUR #### [facility] [address] [place] [address] Finn Hetal Color (U) YELLOW Normal YELLOW [facility] Comment on above: Performed By: #### U MICRO, ERUR #### [facility] [address] [place] [address] Finn Hetal ERUAHD A micrscopic examina tion will be performed if indicated. Normal [facility] Comment on above: Performed By: #### U MICRO, ERUR #### [facility] [address] [place] [address] Finn Hetal Glucose [Mass/Vol] Negative Normal NEGATIVE [facility] Comment on above: Performed By: #### U MICRO, ERUR #### [facility] [address] [place] [address] Finn Hetal Ketones Ql (U) Negative Normal NEGATIVE [facility] [place] [facility] Comment on above: Performed By: #### U MICRO, ERUR #### [facility] [address] [place] [address] Finn Hetal Nitrite Ql (U) Positive Abnormal NEGATIVE [facility] [place] [facility] Comment on above: Performed By: #### U MICRO, ERUR #### [facility] [address] [place] [address] Finn Hetal pH (Bld) 6.0 Normal 5-9 [facility] Comment on above: Performed By: #### U MICRO, ERUR #### [facility] [address] [place] [address] Finn Hetal Protein (U) [Mass/Vol] 100 mg/dL Abnormal NEGATIVE/ TRACE [facility] Comment on above: Performed By: #### U MICRO, ERUR #### [facility] [address] [place] [address] Finn Hetal SPEC GRAVITY >=1.030 Abnormal 1.005-<=1.025 [facility] Comment on above: Performed By: #### U MICRO, ERUR #### [facility] [address] [place] [address] Finnjesus Fong UR MICRO IND INDICATED Normal [facility] Comment on above: Performed By: #### U MICRO, ERUR #### [facility] [address] [place] [address] Finnjesus Fong Urobilinogen Qn (U) 0.2 EU/dl Normal 0.2 - 1.0 [facility] Comment on above: Performed By: #### U MICRO, ERUR #### [facility] [address] [place] [address] Finnjesus Fong WBC (Bld) [#/Vol] Negative Normal NEGATIVE The [facility] Comment on above: Performed By: #### U MICRO, ERUR #### [facility] [address] [place] [address] Finn Hetal URINE MICROSCOPIC ONLYon Bacteria LM.HPF (Urine sed) [#/Area] MODERATE Abnormal NONE SEEN [facility] Comment on above: Performed By: #### U MICRO, ERUR #### [facility] [address] [place] [address] Finn Hetal CAST NONE SEEN Normal NONE SEEN [facility] Comment on above: Performed By: #### U MICRO, ERUR #### [facility] [address] [place] [address] Finn Hetal Crystals LM Nom (Urine sed) NONE SEEN Normal NONE SEEN [facility] Comment on above: Performed By: #### U MICRO, ERUR #### [facility] [address] [place] [address] Finn Hetal CULTURE INDICATED Normal [facility] Comment on above: Performed By: #### U MICRO, ERUR #### [facility] [address] [place] [address] Finn Hetal Epithelial cells LM.HPF (Urine sed) [#/Area] FEW Abnormal NONE SEEN /RARE [facility] Comment on above: Performed By: #### U MICRO, ERUR #### [facility] [address] [place] [address] Finn Hetal MUCOUS TRACE Abnormal NONE SEEN [facility] Comment on above: Performed By: #### U MICRO, ERUR #### [facility] [address] [place], [place] [address] Finn Fong RBC (U) [#/Vol] 2-5 Abnormal 0-2 [facility] Comment on above: Performed By: #### U MICRO, ERUR #### [facility] [address] [place], [place] [address] Finn Fong WBC (Bld) [#/Vol] 5-10 Abnormal NONE SEEN The [facility] Comment on above: Performed By: #### U MICRO, ERUR #### [facility] [address] [place], [place] [address] Finn Fong XR CHEST 1 Von 05-28-2020 [...] HANNAH DAMICO Date: 2020-05-28 13:24 Normal [facility] PROGRESSon 11-16-2018 Protein mass conc HNO ID: [id number] Author: Ezra Murray Service: ? Author Type: Physician Type: Progress Notes Filed: 11/16/2018 1:53 PM Note Text: Cassy Vallejo : 1965 Usp: [facility] PCP: esperanza Date of Last Visit: 10/31 [...] (HCC) E11.9 DEBRIDEMENT OF NAIL(S), 1-5 Normal [facility] SURGICAL PATHOLOGYon 018 SURGICAL PATHOLOGY Specimen #: [id number] Physician: CLARITA GARIBAY M.D. [place]; [id number] (01/11/2018)Liver, biopsy (A1-1 thru A1-3 and associated special stains)- Cirrhosis with changes consistent with steatohepatitis.COMMENTT manuel you for allowing us the opportunity to review this case inconsultation representing the liver biopsy from Cassy Vallejo, a [id number] with a history of hepatic fibrosis.The liver [...] hesitate tocontact the GI Consultation Service at [phone] with questions or ifadditional follow up information becomes available. This case was reviewedin conjunction with the GI pathology fellow, Bobbi Coe D.O./RW//01-19-2018Santana Ceballos M.D., Ph.D.(Electronic Signature) SPECIMEN SUBMITTEDA: 10 SLIDES [id number] CLINICAL DATAHepatic fibrosis.Patient ID #: Date of Report: 01/20/2018Date of Procedure: 01/18/2018Date of Receipt: 01/18/2018Submitted by: CLARITA GARIBAY M.D.Location: Diagnostic interpretation performed at [facility], [address] [place] [address]. Normal [facility] Comment on above: Performed By: #### S ####See report for performing lab information. Vital Signs Date Time Vital Sign Value Performing Clinician Facility 09-30-2023 14:040 Body height 162.56 cm [employer] [facility] 09-30-2023 14:21-0400 Body mass index (BMI) [Ratio] 41.2 kg/m2 [facility] Work Phone: [facility] 09-30-2023 14:21-0400 Body temperature 96.4 [degF] [facility] Work Phone: [facility] 09-30-2023 14:21-0400 Body weight 108.97 kg [facility] Work Phone: [facility] 09-30-2023 14:21-0400 Diastolic blood pressure 80 mm[Hg] [facility] Work [facility] 09-30-2023 14:21-0400 Heart rate 102 /min [facility] Work Phone: [facility] 09-30-2023 14:21-0400 Respiratory rate 16 /min [facility] Work Phone: [facility] 09-30-2023 14:21-0400 SaO2% (BldA) [Mass fraction] 96 % [facility] Work Phone: [facility] 09-30-2023 14:21-0400 Systolic blood pressure 115 mm[Hg] [facility] Work [facility] 08-21-2021 15:00-0500 Body height 160.02 cm Mehreen Henry Other [facility] Other 08-21-2021 15:00-0500 Body mass index (BMI) [Ratio] 43.4 kg/m2 Mehreen Henry Other [facility] Other 08-21-2021 15:00-0500 Body temperature 98.6 [degF] Mehreen Henry Other [facility] Other 08-21-2021 15:00-0500 Body weight 111.13 kg Mehreen Henry Other [facility] Other 08-21-2021 15:00-0500 Respiratory rate 18 /min Mehreen Henry Other [facility] Other 08-21-2021 15:00-0500 SaO2% (BldA) [Mass fraction] 97 % Mehreen Henry Other [facility] Other Encounters Encounter Date Encounter Type Care Provider Facility Start: 09-30-2023 End: 09-30-2023 ambulatory [facility] Work Phone: [facility] Work Phone: Start: 09-30-2023 End: 09-30-2023 Patient encounter procedure [facility] Work Phone: [facility] Work Phone: Start: 07-28-2023 Registered Recurring [facility]ari [facility] Work Phone: [facility] Start: 08-21-2021 End: 08-21-2021 ambulatory Mehreen Henry Other [facility] Other Start: 08-21-2021 Office outpatient vi sit 15 minutes Mehreen Henry [facility] Start: 05-28-2020 End: 05-28-2020 Patient encounter procedure NANCY MACK Facility: Plan of Treatment Date Care Activity Detail Author Renal function 1999 panel - Serum or Plasma [facility] enter US Kidney - bilateral [facility] Payers Date Payer Category Payer Unknown [id number] 1958 Medicaid [id number] 1958 Medicare [id number] Self-pay Self Pay [id number] Unknown [id number] Social History Date Type Detail Facility Tobacco smoking status [facility] Unknown if ever smoked [facility] Start: 1965 Sex Assigned At Female F [facility] Sex Assigned At Sex Assigned At Bir th [facility] Other Start: 09-30-2023 Tobacco smoking status NHIS Smoker (finding) [facility] Medical Equipment Procedure Code Equipment Code Equipment Origin al Text Equipment Identifier Dates Start: 03-24-2017 Goals Date Patient Goal Desired Activity /State Evaluation note 09-30-2023 Note Date & Type Note Facility 09-30-2023 Evaluation note Diagnosis Onset Date Chronic kidney disease, stage 3a acute Hypertensive nephropathy acu te Type 2 diabetes mellitus wit h diabetic nephropathy acute Vitamin D deficiency acute [facility] Work Phone: Evaluation note 08-21-2021 Note Date [...] Patient care instructions given in writting by [facility] At Home document. [facility] Other History general Narrative - Reported Note Date & Type Note Facility History general Narrative - Reported Type Medical History RLS Medical History HTN Medical History anxiety d/o Medical History depression Medical History diabetes mellitus Surgical History J CARLOS Surgical History wisdom teeth Surgical History tonsillectomy Hospitalization History depression Hospitalization History psych 12/2016 [facility] Other Summary Purpose Family History Relationship Condition [...] section and content) DATE CREATED AUTHOR 01/26/2018 [facility] DATE CREATED AUTHOR AUTHOR'S ORGANIZ ATION 11/21/2018 [facility] DATE CREATED AUTHOR AUTHOR'S ORGANIZ ATION 06/02/2020 [facility] DATE CREATED AUTHOR AUTHOR'S ORGANIZ ATION 12/20/2020 [facility] REASON FOR VISIT (unrecogniz ed section and content) BLACK STAN, SINUS CONGESTIO N, COUGH, SORE THROAT, H/A Care Teams (unrecognized sec tion and content) Team Status: Active Member Role Status Dates [facility] Active Team Status: Active Member Role Status Dates [facility] Primary Care Provider Active Start: July 28, 2023 Eloy Roa MD Attending Provider Active Start: July 28, 2023 Team Status: Inactive Member Role Status Dates [facility] Primary Care Provider Active Start: September 30, [...] BE BASED ON THE PRIMARY CLINICAL RECORDS. [facility]. provides no warranty or guarantee of the accuracy or completeness of information in this document.
== END 2024-01-27 09:34 | disposition home or self-care (01) ==
LOC: US 09:34
PROVIDERS: PCP Nurse Practitioner Family
DX: I12.9 Hypertensive chronic kidney disease with stage 1 through stage 4 chronic kidney disease, or unspecified chronic kidney disease (principal); N18.31 Chronic kidney disease, stage 3a; E11.21 Type 2 diabetes mellitus with diabetic nephropathy
CPT/HCPCS: 76775

== ENCOUNTER 2024-07-27 11:39 | Outpatient (OUT) | payer MEDICARE, MEDICAID, SELFPAY ==
--- OUTSIDE RECORDS SUMMARY | 2024-07-27 12:00 | XMS_ITS | CCD ---
Author Organization [facility] Care Team Providers Care Process Technician Name Role Phone NANCY MACK Attending Unavailable NANCY MACK Consulting Unavailable NANCY MACK Admitting Unavailable TOMEKA SCHNEIDER V Consulting Unavailable Nan Rueda Consulting Unavailable Hannah Damico Consulting Unavailable Mehreen Henry Unavailable [facility] Primary Care Provider [phone] MD Eloy Roa Attending Provider [phone] [facility] Primary Care Provider MD Eloy Roa Attending Provider [phone] Unavailable Unavailable Unavailable Allergies Allergy Classification Reported Allergen(s) Allergy Type Date of Onset Reaction(s) Facility (3 sources) Penicillins [facility] substance [facility] (3 sources) Serotonin Reuptake Inhibitors (Ssris) Propensity to adverse reactions 0 Unknown Reaction [facility] (3 sources) Serotonin 5HT-3 Antagonists Allergy to substance 4 Unknown Reaction [facility] Medications Current Medications Medication Drug Class(es) Dates Sig (Normalized) Sig (Original) ARIPiprazole 20 mg oral tablet (4 sources) Atypical Antipsychotic Start: 02-03-2024 take 20 mg by mouth once daily Aripiprazole Active 20 MG PO Daily February 03, 2024 12:00am Start: 09-30-2023 End: 02-03-2024 take 1 tablet by mouth once daily Aripiprazole (Abilify) 15 mg tablet Discontinued 15 MG PO Daily September 30, 2023 12:00am February 03, 2024 2:31pm Abilify Active gabapentin 600 mg oral tablet (6 sources) Anti-epileptic Agent Start: 06-03-2018 take 600 mg by mouth three times daily Gabapentin Active 600 MG PO Three times daily 42 June 03, 2018 1:00am Start: 06-16-2017 End: 05-16-2018 take 600 mg by mouth three times daily Gabapentin Discontinued 600 MG PO Three times daily May 16, 2018 1:00am May 16, 2018 1:15pm Glucometer (1 source) Start: 03-24-2017 Glucometer as directed BID Mar, Active haloperidol 1 mg oral tablet (2 sources) Typical Antipsychotic Start: 01-04-2020 take 1 mg by mouth three times daily Haloperidol Active 1 MG PO Three times daily January 04, 2020 12:00am hydroCHLOROthiazide 12.5 mg / lisinopril 20 mg oral tablet (2 sources) Thiazide Diuretic, Angiotensin Converting Enzyme Inhibitor Start: 09-30-2023 take 2 tablets by mouth once daily Lisinopril-[place] chlorothiazide Active 2 TAB PO Daily September 30, 2023 12:00am lisinopril 2.5 mg oral tablet (4 sources) Angiotensin Converting Enzyme Inhibitor Start: 05-16-2018 [...] Active magnesium oxide 400 mg oral tablet (4 sources) Start: 02-03-2024 take 400 mg by mouth once daily Magnesium Oxide Active 400 MG PO Daily February 03, 2024 12:00am Start: 10-31-2018 End: 01-04-2020 take 400 mg by mouth once daily Magnesium Oxide Discontinued 400 MG PO Daily 30 October 31, 2018 12:00am January 04, 2020 11:48pm metFORMIN hydrochloride 1000 mg oral tablet (4 sources) Biguanide Start: 04-07-2017 take 1000 mg by mouth twice daily Metformin Active 1000 MG PO Twice daily May 16, 2018 1:00am 24 hr NIFEdipine 90 mg extended release oral tablet (5 sources) Dihydropyridine Calcium Channel Jarred Start: 09-30-2023 take 90 mg by mouth once daily Nifedipine Active 90 MG PO Daily September 30, 2023 12:00am Start: 01-04-2020 End: 09-30-2023 take 60 mg by mouth once daily Nifedipine Discontinued 60 MG PO Daily January 04, 2020 12:00am September 30, 2023 2:24pm Procardia Active rosuvastatin calcium 10 mg oral tablet (2 sources) HMG-CoA Reductase Inhibitor Start: 09-30-2023 take 10 mg by mouth once daily Rosuvastatin Active 10 MG PO Daily September 30, 2023 12:00am Completed/Discontinued Medications Medication Drug Class(es) Dates Sig (Normalized) Sig (Original) ALPRAZolam 1 mg oral tablet (3 sources) Benzodiazepine Start: 05-16-2018 End: 06-03-2018 take 1 mg by mouth four times daily Alprazolam Discontinued 1 MG PO Four times daily May 16, 2018 1:00am June 03, 2018 11:59am amLODIPine 5 mg oral tablet (3 sources) Dihydropyridine Calcium Channel Jarred Start: 05-16-2018 End: 05-16-2018 take 5 mg by mouth once daily Amlodipine Discontinued 5 MG PO Daily May 16, 2018 1:00am May 16, 2018 1:15pm aspirin 81 mg oral tablet (1 source) Platelet Aggregation Inhibitor, Nonsteroidal Anti-inflammatory Drug take 1 tablet by mouth once daily Baby Aspirin 81 MG 1 tablet Orally Once a day Not-Taking benztropine mesylate 0.5 mg oral tablet (3 sources) Anticholinergic, Antihistamine Start: 06-21-2018 End: 01-04-2020 take 0.5 mg by mouth every six hours Benztropine Discontinued 0.5 MG PO Q6H June 21, 2018 1:00am January 04, 2020 11:48pm 24 hr buPROPion hydrochloride 150 mg extended release oral tablet (5 sources) Aminoketone Start: 01-05-2020 End: 09-30-2023 take [...] 2020 6:20am cephalexin 500 mg oral capsule (2 sources) Cephalosporin Antibacterial Start: 10-10-2018 End: 10-31-2018 take [...] HS Not-Taking cholecalciferol 0.125 mg oral capsule (2 sources) Vitamin D Start: 06-03-2018 End: 10-10-2018 take [...] PAIN RELIEF for 100 GRAM Nov, Not-Taking docusate sodium 100 mg oral capsule (3 sources) Start: 05-16-2018 End: 09-30-2023 take 1 capsule by mouth once daily Docusate Sodium (Colace) 100 mg Capsule Discontinued 100 MG PO Daily May 16, 2018 1:00am September 30, 2023 2:28pm glipiZIDE 10 mg oral tablet (3 sources) Sulfonylurea Start: 05-16-2018 End: 10-10-2018 take 10 mg by mouth twice daily Glipizide Discontinued 10 MG PO Twice daily May 16, 2018 1:00am October 10, 2018 10:38am lidocaine 0.05 mg/mg medicated patch (3 sources) Antiarrhythmic, Amide Local Anesthetic Start: 10-31-2018 End: 01-04-2020 apply 1 dose topically once daily Lidocaine (Lidoderm) 5 % adhesive patch,medicated Discontinued 1 PATCH TOPICAL Daily 7 October 31, 2018 12:00am January 04, 2020 11:48pm leave on most painful area for 12 hrs mirtazapine 15 mg oral tablet (3 sources) Start: 06-03-2018 End: 01-04-2020 take 45 mg by mouth once daily at bedtime Mirtazapine Discontinued 45 MG PO Daily at bedtime 42 June 03, 2018 1:00am January 04, 2020 11:48pm nortriptyline 25 mg oral capsule (3 sources) Tricyclic Antidepressant Start: 05-16-2018 End: 06-03-2018 take 1 capsule by mouth once daily Nortriptyline (Pamelor) 25 mg Capsule Discontinued 75 MG PO Daily May 16, 2018 1:00am June 03, 2018 11:59am take 3 capsules by m outh every twenty-four hours Nortriptyline HCl 25 mg 3 capsules Orall y Once a day Not-Taking OLANZapine 5 mg oral tablet (3 sources) Atypical Antipsychotic Start: 06-21-2018 End: 10-10-2018 take 5 mg by mouth once daily at bedtime Olanzapine Discontinued 5 MG PO Daily at bedtime June 21, 2018 1:00am October 10, 2018 10:39am take 2 tablets by mo ut once daily at bedtime ZyPREXA 5 mg 2 tablet Orally QHS Not-Jose M ing omeprazole 20 mg delayed release oral capsule (3 sources) Proton Pump Inhibitor Start: 10-10-2018 End: 01-04-2020 take 20 mg by mouth once daily Omeprazole Discontinued 20 MG PO Daily October 10, 2018 12:00am January 04, 2020 11:49pm swallow whole; do not crush, chew, dissolve, or cut/break OXcarbazepine 150 mg oral tablet (2 sources) Anti-epileptic Agent Start: 01-04-2020 End: 09-30-2023 take 150 mg by mouth twice daily Oxcarbazepine Discontinued 150 MG PO Twice daily January 04, 2020 12:00am September 30, 2023 2:27pm pramipexole dihydrochloride 0.125 mg oral tablet (2 sources) Nonergot Dopamine Agonist Start: 01-04-2020 End: 09-30-2023 take 0.125 mg by mouth once daily at bedtime Pramipexole Discontinued 0.125 MG PO Daily at bedtime January 04, 2020 12:00am September 30, 2023 2:27pm promethazine hydrochloride 25 mg oral tablet (3 sources) Phenothiazine Start: 10-10-2018 End: 01-04-2020 take 25 mg by mouth every four to six hours Promethazine Discontinued 25 MG PO EVERY 4-6 HOURS October 10, 2018 12:00am January 04, 2020 11:49pm propranolol hydrochloride 10 mg oral tablet (2 sources) beta-Adrenergic Jarred Start: 01-04-2020 End: 09-30-2023 take 10 mg by mouth once daily Propranolol Discontinued 10 MG PO Daily January 04, 2020 12:00am September 30, 2023 2:27pm QUEtiapine 100 mg oral tablet (7 sources) Atypical Antipsychotic Start: 10-31-2018 End: 01-04-2020 take 100 mg by mouth three times daily Quetiapine Discontinued 100 MG PO Three times daily October 31, 2018 12:00am January 04, 2020 11:49pm Start: 06-21-2018 End: 10-31-2018 take 200 mg by mouth three times daily Quetiapine Discontinued 200 MG PO Three times daily June 21, 2018 1:00am October 31, 2018 11:03am Start: 05-16-2018 End: 06-03-2018 take 1 tablet by mouth at bedtime Quetiapine (Seroquel) 300 mg Tablet Discontinued 300 MG PO Bedtime May 16, 2018 1:00am June 03, 2018 11:59am SITagliptin 100 mg oral tablet (1 source) Dipeptidyl Peptidase 4 Inhibitor Start: 04-07-2017 take 1 tablet by mouth every twenty-four hours Januvia 100 MG 1 tablet Orally Once a day for 30 day(s) Mar, Not-Taking sucralfate 1000 mg oral tablet (3 sources) Aluminum Complex Start: 10-10-2018 End: 01-04-2020 take 1 tablet by mouth four times daily 1 hour(s) before bedtime Sucralfate (Carafate) 1 gram tablet Discontinued 1 GM PO Four times daily 112 October 10, 2018 12:00am January 04, 2020 11:49pm administer 1 hour before meals and at bedtime tiZANidine 4 mg oral tablet (2 sources) Central alpha-2 Adrenergic Agonist Start: 01-04-2020 End: 09-30-2023 Tizanidine Discontinued 4 MG PO every 6 to 8 hours January 04, 2020 12:00am September 30, 2023 2:27pm traZODone hydrochloride 50 mg oral tablet (8 sources) Serotonin Reuptake Inhibitor Start: 01-04-2020 End: 09-30-2023 take 150 mg by mouth once daily at bedtime Trazodone Discontinued 150 MG PO Daily at bedtime January 04, 2020 10:32pm September 30, 2023 2:28pm Start: 10-31-2018 End: 01-04-2020 take 50 mg by mouth once daily at bedtime Trazodone Discontinued 50 MG PO Daily at bedtime October 31, 2018 12:00am January 04, 2020 10:32pm Start: 06-03-2018 End: 10-31-2018 take 100 mg by mouth once daily at bedtime Trazodone Discontinued 100 MG PO Daily at bedtime June 03, 2018 1:00am October 31, 2018 11:03am take 1 tablet by benji th once daily at bedtime as needed traZODone HCl 200 mg 1 tablet at bedtime as needed Orally Once a day Not-Taking trifluoperazine 5 mg oral tablet (2 sources) Phenothiazine Start: 06-03-2018 End: 06-21-2018 take 5 mg by mouth once daily at bedtime Trifluoperazine Discontinued 5 MG PO Daily at bedtime June 03, 2018 1:00am June 21, 2018 1:02pm Problems Active Problems Problem Classification Problem Date Documented Date Episodic/Chronic Acute and unspecified renal failure (1 source) Acute renal failure syndrome; Translations: [Acute kidney injury] Episodic Anxiety disorders (5 sources) Panic disorder; Translations: [Anxiety] 01-05-2020 Chronic Chronic kidney disease (6 sources) Chronic kidney disease stage 3; Translations: [Stage 3 chronic kidney disease] 01-05-2020 Chronic Coagulation and hemorrhagic disorders (2 sources) Thrombocytopenic disorder; Translations: [Thrombocytopenia, unspecified] 10-28-2018 Chronic Crushing injury or internal injury (1 source) Injury of kidney; Translations: [Acute kidney injury] Episodic Diabetes mellitus with complications (4 sources) Type 2 diabetes mellitus; Translations: [Type 2 diabetes mellitus with diabetic nephropathy] 09-30-2023 Chronic Diabetes mellitus without complication (6 sources) Diabetes mellitus; Translations: [Diabetes mellitus without complication] 01-05-2020 Chronic Diseases of white blood cells (2 sources) Leukocytosis; Translations: [Elevated white blood cell count, unspecified] 01-05-2020 Chronic Disorders of lipid metabolism (3 sources) Hyperlipidemia; Translations: [Hyperlipidemia, unspecified] 01-05-2020 Chronic Essential hypertension (4 sources) Hypertensive disorder; Translations: [Hypertension, unspecified] 01-05-2020 Chronic Fluid and electrolyte disorders (13 sources) Hyponatremia; Translations: [Metabolic acidosis, increased anion gap (IAG)] 10-30-2018 Episodic Hepatitis (1 source) Chronic hepatitis C; Translations: [Chronic viral hepatitis C] Chronic Hepatitis (4 sources) Viral hepatitis C; Translations: [Unspecified viral hepatitis C without hepatic coma] 10-28-2018 Episodic Hypertension with complications and secondary hypertension (4 sources) Hypertensive renal disease; Translations: [Hypertensive chronic kidney disease with stage 1 through stage 4 chronic kidney disease, or unspecified chronic kidney disease] 09-30-2023 Chronic Mood disorders (5 sources) Recurrent major depression; Translations: [Major depressive disorder, recurrent, unspecified] 10-28-2018 Chronic Nausea and vomiting (1 source) Nausea; Translations: [Chemotherapy-induced nausea] Episodic Nonspecific chest pain (4 sources) Chest pain, unspecified; Translations: [Other chest pain] Onset: 05-28-2020 Episodic Nutritional deficiencies (4 sources) Vitamin D deficiency; Translations: [Vitamin D deficiency, unspecified] 09-30-2023 Chronic Nutritional deficiencies (3 sources) Decreased vitamin D; Translations: [Other specified abnormal findings of blood chemistry] 05-22-2018 Episodic Other circulatory disease (3 sources) Low blood pressure; Translations: [Hypotension, unspecified] 10-28-2018 Episodic Other hereditary and degenerative nervous system conditions (1 source) Restless legs; Translations: [Restless leg] Chronic Other liver diseases (3 sources) Alkaline phosphatase raised; Translations: [Abnormal levels of other serum enzymes] 05-22-2018 Episodic Other liver diseases (3 sources) ALT (SGPT) level raised; Translations: [Elevated alanine aminotransferase (ALT) level] 05-22-2018 Episodic Other nervous system disorders (3 sources) Disorder of brain; Translations: [Encephalopathy, unspecified] 10-30-2018 Chronic Other nervous system disorders (1 source) Chronic pain; Translations: [Other chronic pain] Chronic Other nervous system disorders (1 source) Neuropathy; Translations: [Polyneuropathy, unspecified] Chronic Other nutritional; endocrine; and metabolic disorders (3 sources) Hypomagnesemia; Translations: [Hypomagnesemia] 10-30-2018 Chronic Other nutritional; endocrine; and metabolic disorders (4 sources) Obesity; Translations: [Obesity (BMI 30-39.9)] 05-22-2018 Chronic Other nutritional; endocrine; and metabolic disorders (1 source) Hypomagnesemia; Translations: [Disorders of magnesium metabolism] 02-03-2024 Chronic Other nutritional; endocrine; and metabolic disorders (2 sources) Psychogenic polydipsia; 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] 01-06-2020 Episodic Other nutritional; endocrine; and metabolic disorders (1 source) Hyperuricemia; Translations: [Hyperuricemia without signs of inflammatory arthritis and tophaceous disease] 02-03-2024 Episodic Other nutritional; endocrine; and metabolic disorders (1 source) Hyperuricemia without signs of inflammatory arthritis and tophaceous disease; Translations: [Other abnormal blood chemistry] 02-03-2024 Episodic Other screening for suspected conditions (not mental disorders or infectious disease) (3 sources) Platelet count below reference range; Translations: [Abnormal coagulation profile] Onset: 05-30-2020 02-03-2024 Episodic Other upper respiratory infections (1 source) Sinusitis; Translations: [Chronic infection of sinus NOS] Chronic Residual codes; unclassified (1 source) Sleep apnea; Translations: [Sleep apnea, unspecified] Chronic Residual codes; unclassified (3 sources) Altered mental status; Translations: [Altered mental [...] Test Name Value Interpretation Reference Range Facility Erythrocyte distribution wid th Auto (RBC) [Ratio]on 01-25-2024 Erythrocyte distribution width (RBC) [Ratio] 12.1 % 11.0-15.0 [facility] Estimated glomerular filtrat ion rate (GFR) non- Americanon 01-25-2024 GFR/1.73 sq M.predicted among non-blacks MDRD (S/P/Bld) [Vol rate/Area] 42 mL/min/{1.73_m2} Low >=60 [facility] Hematocrit Auto (Bld) [Volum e fraction]on 01-25-2024 Hematocrit (Bld) [Volume fraction] 40.5 % 36.0-48.0 [facility] Hemoglobin [Mass/volume] in Bloodon 01-25-2024 Hemoglobin (Bld) [Mass/Vol] 13.9 g/dL 12.0-16.0 [facility] Laboratory - Chemistry and C hemistry - challengeon 01-25-2024 Albumin [Mass/Vol] 4.0 g/dL 3.4-5.0 [facility] Calcium [Mass/Vol] 9.4 mg/dL 8.5-10.1 [facility] Chloride [Moles/Vol] 94 mmol/L Low 98-107 [facility] CO2 [Moles/Vol] 26.3 mmol/L 21.0-32.0 [facility] Creatinine [Mass/Vol] 1.31 mg/dL High 0.55-1.02 [facility] GFR/1.73 sq M.predicted MDRD (S/P/Bld) [Vol rate/Area] 51 mL/min/{1.73_m2} Low >=60 [facility] Glucose [Mass/Vol] 125 mg/dL High 74-106 [facility] Magnesium [Mass/Vol] 1.5 mg/dL Low 1.8-2.4 [facility] Potassium [Moles/Vol] 3.6 mmol/L 3.5-5.1 [facility] Sodium [Moles/Vol] 131 mmol/L Low 136-145 [facility] Urate [Mass/Vol] 7.9 mg/dL High 2.6-6.0 [facility] Urea nitrogen [Mass/Vol] 24.0 mg/dL High 7.0-18.0 [facility] Urea nitrogen/Creatinine [Mass ratio] 18.3 mg/mg [facility] Bilirubin Ql (U) Negative NEGATIVE [facility] Glucose (U) [Mass/Vol] Negative NEGATIVE [facility] Ketones Ql (U) Negative NEGATIVE [facility] pH (U) 6.0 [pH] 5.0-9.0 [facility] Specific gravity (U) [Rel density] 1.010 1.005-1.025 [facility] Urobilinogen Qn (U) 0.2 {Emilee'U}/dL 0.2-1.0 [facility] Laboratory - Specimen inform ationon 01-25-2024 Appearance (U) CLEAR CLEAR [facility] Color (U) LT. YELLOW YELLOW [facility] Laboratory - Urinalysison Leukocyte esterase Test strip Ql (U) TRACE Abnormal NEGATIVE [facility] Nitrite Ql (U) Negative NEGATIVE [facility] Protein (U) [Mass/Vol] 8.8 mg/dL <=11.9 [facility] Protein Ql (U) Negative NEG/TRACE [facility] Leukocytes [#/volume] correc dee for nucleated erythrocytes in Blood by Automated counon 01-25-2024 WBC corrected for nucl RBC Auto (Bld) [#/Vol] 13.3 10 3/uL High 4.0-11.0 [facility] MCH Auto (RBC) [Entitic mass ]on 01-25-2024 MCH (RBC) [Entitic mass] 31.7 pg 26.7-34.0 [facility] MCHC Auto (RBC) [Mass/Vol]on 01-25-2024 MCHC (RBC) [Mass/Vol] 34.3 g/dL 29.9-35.2 [facility] MCV Auto (RBC) [Entitic vol] on 01-25-2024 MCV (RBC) [Entitic vol] 92.5 fL 81.0-99.0 [facility] Microalbumin [Mass/volume] i n Urineon 01-25-2024 Albumin DL <= 20 mg/L (U) [Mass/Vol] mg/dL <=30.0 [facility] No Panel Informationon 01-24 25-Hydroxy Vitamin D Total 50.5 ng/mL [facility] Comment on above: <20 ng/mL Vit D defi cient20-<30 ng/mL Vit D [id number] ng/mL Vit D sufficient>100 ng/mL Potential Toxicity Parathyroid Hormone (Intact) 39 pg/mL 15-65 [facility] Comment on above: Performed at: [facility] [address] [id number] Director: Fadi Pompa PhD, Phone: [phone] Phosphorus Level 3.3 mg/dL 2.6-4.7 [facility] Urine Occult Blood SMALL Abnormal NEGATIVE [facility] Urine Random Creatinine 46.72 mg/dL 20.00-300.00 [facility] Platelet mean volume Auto (B ld) [Entitic vol]on 01-25-2024 Platelet mean volume (Bld) [Entitic vol] 8.3 fL Low 9.5-13.5 [facility] Platelets Auto (Bld) [#/Vol] on 01-25-2024 Platelets (Bld) [#/Vol] 248 10 3/uL 150-450 [facility] RBC Auto (Bld) [#/Vol]on RBC (Bld) [#/Vol] 4.38 10 6/uL 4.20-5.40 [facility] Serum or plasma anion gap de terminationon 01-25-2024 Anion gap [Moles/Vol] 14.3 mmol/L [facility] Urine protein/creatinine rat ioon 01-25-2024 Protein/Creatinine (U) [Ratio] 0.19 [facility] Patient Letter FTon 2020 [place] [facility] (Inserted Image. Ruth ble to display) December 19, 2020 CASSY VALLEJO [address] [place] [address] CASSY VALLEJO 1965 Dear Cassy, This is a SECOND ATTEMPT to remind you that you are due for an appointment with Dr. Baumann or Dr. Zuleta. Please call [facility] at [phone] to schedule an appointment at your earliest convenience. Thank you, [facility] Reminderson 12-19-2020 Reminders - From: Melinda Hernández MA To: [facility] - Reminders/Recalls; Sent: 02/09/2020 07:53:13 EDT Show up: 11/13/2020 07:53:00 EDT Subject: [facility] REMINDER RECALL DECEMBER 2020 Due Date/Time: 12/13/2020 07:53:00 EDT Reminder/Recall DR BAUMANN 3 YR COLON 12/30/2020 first recall letter second recall letter Normal [facility] Patient Letter FTon 2020 Patient Letter [facility] [place] (Inserted Image. Ruth ble to display) November 13, 2020 CASSY VALLEJO [address] [place] [address] CASSY VALLEJO 1965 Dear Casys, This is a reminder that you are due for an appointment with Dr. Baumann or Dr. Zuleta. Please call [facility] at [phone] to schedule an appointment at your earliest convenience. Thank you, [facility] Reminder returned. Undeliverable. No forwarding address. Normal [facility] CULTURE URINEon 05-30-2020 CULTURE URINE Isolate [...] 1 S F Nitrofurantoin <=16 S F Trimethoprim/Sulfametho xazole <=20 S F Normal [facility] Comment on above: Performed By: #### U RCX #### [facility] [address] ABD/PELVIS WO CONon 05-28 [...] by: NAN RUEDA Date: 2020-05-28 13:57 Normal [facility] CTA CHEST WO W CONon 020 CTA CHEST WO W CON EXAMINATION: CTA [facility]ADEN ST WO W CON HISTORY: CHEST PAIN, UNSPECIFIED [...] TOMEKA SCHNEIDER Date: 2020-05-28 15:10 Normal [facility] D-DIMERon 05-28-2020 D-DIMER COMMENTS SEE BELOW Normal [facility] Comment on above: Result Comment: Incr eases [...] hospitalization. Performed By: #### D DIM #### [facility] [address] [place] [address] Finn Fong Fibrin D-dimer FEU IA (Bld) [Mass/Vol] 0.74 mg/L FEU Critically high 0.19-0.50 [facility] Comment on above: Result Comment: Test repeated. Critical value verified. Performed By: #### D DIM #### [facility] [address] [place] [address] Finnjesus Fong ER URINE PROFILEon 0 Bilirubin [Mass/Vol] Negative Normal NEGATIVE [facility] Comment on above: Performed By: #### U MICRO, ERUR #### [facility] [address] [place] [address] Finn Hetal BLOOD MODERATE Abnormal NEGATIVE [facility] Comment on above: Performed By: #### U MICRO, ERUR #### [facility] [address] [place] [address] Finnjesus Fong Clarity (U) CLEAR Normal CLEAR [facility] Comment on above: Performed By: #### U MICRO, ERUR #### [facility] [address] [place] [address] Finn Hetal Color (U) YELLOW Normal YELLOW [facility] Comment on above: Performed By: #### U MICRO, ERUR #### [facility] [address] [place] [address] Finn Hetal ERUAHD A micrscopic examination will be performed if indicated. Normal [facility] Comment on above: Performed By: #### U MICRO, ERUR #### [facility] [address] [place] [address] Finn Hetal Glucose [Mass/Vol] Negative Normal NEGATIVE [facility] Comment on above: Performed By: #### U MICRO, ERUR #### [facility] [address] [address] Finn Hetal Ketones Ql (U) Negative Normal NEGATIVE [facility] [place] [facility] Comment on above: Performed By: #### U MICRO, ERUR #### [facility] [address] [address] Finn Hetal Nitrite Ql (U) Positive Abnormal NEGATIVE [facility] [place] [facility] Comment on above: Performed By: #### U MICRO, ERUR #### [facility] [address] [place] [address] Finn Hetal pH (Bld) 6.0 Normal 5-9 [facility] Comment on above: Performed By: #### U MICRO, ERUR #### [facility] [address] [place] [address] Finn Hetal Protein (U) [Mass/Vol] 100 mg/dL Abnormal NEGATIVE/ TRACE [facility] Comment on above: Performed By: #### U MICRO, ERUR #### [facility] [address] [place] [address] Finn Hetal SPEC GRAVITY >=1.030 Abnormal 1.005-<=1.025 [facility] Comment on above: Performed By: #### U MICRO, ERUR #### [facility] [address] [place] [address] Finn Hetal UR MICRO IND INDICATED Normal [facility] Comment on above: Performed By: #### U MICRO, ERUR #### [facility] [address] [place] [address] Finn Hetal Urobilinogen Qn (U) 0.2 EU/dl Normal 0.2 - 1.0 [facility] Comment on above: Performed By: #### U MICRO, ERUR #### [facility] [address] [place] [address] Finn Hetal WBC (Bld) [#/Vol] Negative Normal NEGATIVE [facility] Comment on above: Performed By: #### U MICRO, ERUR #### [facility] [address] [place], [place] [address] Finn Hetal URINE MICROSCOPIC ONLYon Bacteria LM.HPF (Urine sed) [#/Area] MODERATE Abnormal NONE SEEN The [facility] Comment on above: Performed By: #### U MICRO, ERUR #### [facility] [address] [place], [place] [id number] Finn Hetal CAST NONE SEEN Normal NONE SEEN [facility] Comment on above: Performed By: #### U MICRO, ERUR #### [facility] [address] [place], [place] [id number] Finn Hetal Crystals LM Nom (Urine sed) NONE SEEN Normal NONE SEEN [facility] Comment on above: Performed By: #### U MICRO, ERUR #### [facility] [address] [place] [address] Finn Hetal CULTURE INDICATED Normal [facility] Comment on above: Performed By: #### U MICRO, ERUR #### [facility] [address] [place] [address] Finn Hetal Epithelial cells LM.HPF (Urine sed) [#/Area] FEW Abnormal NONE SEEN /RARE [facility] Comment on above: Performed By: #### U MICRO, ERUR #### [facility] [address] [place], [place] [id number] Finn Hetal MUCOUS TRACE Abnormal NONE SEEN [facility] Comment on above: Performed By: #### U MICRO, ERUR #### [facility] [address] [place], [place] [id number] Finn Hetal RBC (U) [#/Vol] 2-5 Abnormal 0-2 [facility] Comment on above: Performed By: #### U MICRO, ERUR #### [facility] [address] [place], [place] [id number] Finn Hetal WBC (Bld) [#/Vol] 5-10 Abnormal NONE SEEN [facility] Comment on above: Performed By: #### U MICRO, ERUR #### [facility] [address] [place], [place] [id number] Finn Hetal XR CHEST 1 Von 05-28-2020 XR CHEST [...] by: HANNAH DAMICO Date: 2020-05-28 13:24 Normal [facility] PROGRESSon 11-16-2018 Protein mass conc HNO ID: [id number] Author: Ezra Murray Service: ? Author Type: Physician Type: Progress Notes Filed: 11/16/2018 1:53 PM Note Text: Cassy Vallejo : 1965 Fdc: [facility] PCP: esperanza Date of Last Visit: [...] (HCC) E11.9 DEBRIDEMENT OF NAIL(S), 1-5 Normal [facility] SURGICAL PATHOLOGYon 018 SURGICAL PATHOLOGY Specimen #: [id number] Physician: CLARITA GARIBAY M.D. [place]; [id number] (01/11/2018)Liver, biopsy (A1-1 thru A1-3 and associated special stains)- Cirrhosis with changes consistent with steatohepatitis.COMMENT Thank you for allowing us the opportunity to review this case inconsultation representing the liver biopsy from Cassy Vallejo, a [id number] with a history of hepatic fibrosis.The liver [...] hesitate tocontact the GI Consultation Service at [phone] with questions or ifadditional follow up information becomes available. This case was reviewedin conjunction with the GI pathology fellow, Bobbi Coe D.O./RW/lh/01-19-2018Talia Ceballos M.D., Ph.D.(Electronic Signature) SPECIMEN SUBMITTEDA: [id number] CLINICAL DATAHepatic fibrosis.Patient ID #: Date of Report: 01/20/2018Date of Procedure: 01/18/2018Date of Receipt: 01/18/2018Submitted by: CLARITA GARIBAY M.D.Location: Diagnostic interpretation performed at [facility], [address] [place] [address]. Normal [facility] Comment on above: Performed By: #### S ####See report for performing lab information. Vital Signs Date Time Vital Sign Value Performing Clinician Facility 02-03-2024 14: Body height 162.56 cm [facility] Work Phone: [facility] 02-03-2024 14: Body mass index (BMI) [Ratio] 38.3 kg/m2 [facility] Work Phone: [facility] 02-03-2024 14:040 Body temperature 97.2 [degF] [facility] Work Phone: [facility] 02-03-2024 14:040 Body weight 101.37 kg [facility] Work Phone: [facility] 02-03-2024 14:040 Diastolic blood pressure 81 mm[Hg] [facility] Work Phone: [facility] 02-03-2024 14:040 Heart rate 88 /min [facility] Work Phone: [facility] 02-03-2024 14:28-0400 Respiratory rate 18 /min [facility] Work Phone: [facility] 02-03-2024 14:28-0400 SaO2% (BldA) [Mass fraction] 98 % [facility] Work Phone: [facility] 02-03-2024 14:28-0400 Systolic blood pressure 123 mm[Hg] [facility] Work Phone: [facility] 09-30-2023 14:21-0400 Body height 162.56 cm [facility] Work Phone: [facility] 09-30-2023 14:21-0400 Body mass index (BMI) [Ratio] 41.2 kg/m2 [facility] Work Phone: [facility] 09-30-2023 14:21-0400 Body temperature 96.4 [degF] [facility] Work Phone: [facility] 09-30-2023 14:21-0400 Body weight 108.97 kg [facility] Work Phone: [facility] 09-30-2023 14:21-0400 Diastolic blood pressure 80 mm[Hg] [facility] Work Phone: [facility] 09-30-2023 14:21-0400 Heart rate 102 /min [facility] Work Phone: [facility] 09-30-2023 14:21-0400 Respiratory rate 16 /min [facility] Work Phone: [facility] 09-30-2023 14:21-0400 SaO2% (BldA) [Mass fraction] 96 % [facility] Work Phone: [facility] 09-30-2023 14:21-0400 Systolic blood pressure 115 mm[Hg] [facility] Work Phone: [facility] 08-21-2021 15:00-0500 Body height 160.02 cm Mehreen Henry Other [facility] Other 08-21-2021 15:00-0500 Body mass index (BMI) [Ratio] 43.4 kg/m2 Mehreen [facility] Other [facility] Other 08-21-2021 15:00-0500 Body temperature 98.6 [degF] Mehreen Henry Other [facility] Other 08-21-2021 15:00-0500 Body weight 111.13 kg Mehreen Henry Other [facility] Other 08-21-2021 15:00-0500 Respiratory rate 18 /min Mehreen Henry Other [facility] Other 08-21-2021 15:00-0500 SaO2% (BldA) [Mass fraction] 97 % Mehreen Henry Other [facility] Other Encounters Encounter Date Encounter Type Care Provider Facility Start: 02-03-2024 End: 02-03-2024 ambulatory [facility] Work Phone: [facility] Work Phone: Start: 02-03-2024 End: 02-03-2024 Patient encounter procedure [facility] Work Phone: [facility] Work Phone: Start: 01-25-2024 Non-patient / Non-visit [facility] Work Phone: [facility] Work Phone: Start: 12-22-2023 [facility]istered [facility]: [facility] Start: 09-30-2023 End: 09-30-2023 ambulatory [facility] Work Phone: [facility] Work Phone: Start: 09-30-2023 End: 09-30-2023 Patient encounter procedure [facility] Work Phone: [facility] Neph[facility] Work Phone: Start: 07-28-2023 Registered [facility] Work Phone: [facility] Start: 08-21-2021 End: 08-21-2021 ambulatory Mehreen Henry Other [facility] Other Start: 08-21-2021 Office outpatient vi sit 15 minutes Mehreen Henry [facility] Start: 05-28-2020 End: 05-28-2020 Patient encounter procedure NANCY MACK Facility: Plan of Treatment Date Care Activity Detail Author Renal function 1999 panel - Serum or Plasma [facility] enter Renal function 1999 panel - Serum or Plasma [facility] enter US Kidney - bilateral Firela [facility] Payers Date Payer Category Payer Unknown [id number] 1958 Medicaid [id number] 1958 Medicare [id number] Self-pay Self Pay [id number] Unknown [id number] Social History Date Type Detail Facility Tobacco smoking status NHIS Unknown if ever smoked [facility] Start: 1965 Sex Assigned At Female [facility] Sex Assigned At Sex Assigned At Bir th [facility] Other Start: 09-30-2023 End: 02-03-2024 Tobacco smoking status NHIS Smoker (finding) [facility] Medical Equipment Procedure Code Equipment Code Equipment Origin al Text Equipment Identifier Dates Start: 03-24-2017 Goals Date Patient Goal Desired Activity /State Evaluation note 02-03-2024 Note Date & Type Note Facility 02-03-2024 Evaluation note Diagnosis Onset Date Chronic kidney disease, stage 3a acute Hypertensive nephropathy acu te Hyperuricemia acute Hypomagnesemia acute Hyponatremia acute Type 2 diabetes mellitus wit h diabetic nephropathy acute Vitamin D deficiency acute [facility] Work Phone: Evaluation note 09-30-2023 Note Date & Type Note Facility 09-30-2023 Evaluation note Diagnosis Onset Date Chronic kidney disease, stage 3a acute Hypertensive nephropathy acu te Type 2 diabetes mellitus wit h diabetic nephropathy acute Vitamin D deficiency acute [facility] Work Phone: Evaluation note 08-21-2021 Note [...] Patient care instructions given in writting by [facility] Care At Home document. [facility] [employer] Other History general Narrative - Reported Note Date & Type Note Facility History general Narrative - Reported Type Medical History RLS Medical History HTN Medical History anxiety d/o Medical History depression Medical History diabetes mellitus Surgical History J CARLOS Surgical History wisdom teeth Surgical History tonsillectomy Hospitalization History depression Hospitalization History psych 12/2016 [facility] Other Summary Purpose Family History Relationship Condition Age at Onset Recorded Date/T [place] Not Specified Hypertension Unknown Relationship Condition Age at Onset Recorded Date/T [place] father Multiple myeloma Unknown father Malignant neoplasm Unknown Unknown Not Specified Hypertension Unknown Family history of mental disorder Unknown Relationship Condition Age at Onset Recorded Date/T [place] father Multiple myeloma Unknown father Malignant neoplasm Unknown Unknown mother Hypertension Unknown Family history of mental disorder Unknown Advance Directives Advance Directive Response Recorded Date/ Time Advance Directives No December 01 10:07am Assessments No Assessments Information Available Chief Complaint and Reason for Visit Chief Complaint BH RENAL CKD 3 Reason for Visit Chronic kidney disea se, stage 3a Hypertensive nephropathy Type 2 diabetes mellitus with diabetic nephropathy Vitamin D deficiency Chief Complaint BH RENAL 4 MONTH F/U Reason for Visit Chronic kidney disea se, stage 3a Hypertensive nephropathy Hyperuricemia Hypomagnesemia Hyponatremia Type 2 diabetes mellitus with diabetic nephropathy Vitamin D deficiency Additional Source Comments INFORMATION SOURCE (unrecogn ized section and content) DATE CREATED AUTHOR 01/26/2018 [facility] DATE CREATED AUTHOR AUTHOR'S ORGANIZ ATION 11/21/2018 [facility] DATE CREATED AUTHOR AUTHOR'S ORGANIZ ATION 06/02/2020 [facility] DATE CREATED AUTHOR AUTHOR'S ORGANIZ ATION 12/20/2020 [facility] REASON FOR VISIT (unrecogniz ed section and content) BLACK STAN, SINUS CONGESTIO N, COUGH, SORE THROAT, H/A Care Teams (unrecognized sec tion and content) Team Status: Active Member Role Status Dates [facility] Primary Care Provider Active Team Status: Active Member Role Status Dates [facility] Primary Care Provider Active Start: July 28, 2023 Eloy Roa MD Attending Provider Active Start: July 28, 2023 Team Status: Inactive Member Role Status Dates [facility] Primary Care Provider Active Start: September 30, 2023 End: September 30, 2023 Monet Villagran MD Attending Provider Active Star t: September 30, 2023 End: September 30, 2023 Team Status: Active Member Role Status Dates [facility] Primary Care Provider Active Start: December 22, 2023 Eloy Roa MD Attending Provider Active Start: December 22, 2023 Team Status: Active Member Role Status Dates [facility] Primary Care Provider Active Start: January 25, 2024 Monet Villagran MD Attending Provider Active Star t: January 25, 2024 Team Status: Inactive Member Role Status Dates [facility] Primary [facility] Provider Active Start: February 03, 2024 End: February 03, 2024 Monet Villagran MD Attending Provider Active Star t: February 03, 2024 End: February 03, 2024 Goals (unrecognized section and content) Goals may [...] BE BASED ON THE PRIMARY CLINICAL RECORDS. [employer] provides no warranty or guarantee of the accuracy or completeness of information in this document.
[2024-07-27 12:03] LABS: Hematocrit 44.4 % (36.0-48.0); Hemoglobin 14.9 g/dL (12.0-16.0); Mean Corpuscular HGB Conc 33.6 g/dL (29.9-35.2); Mean Corpuscular Hemoglobin 30.3 pg (26.7-34.0); Mean Corpuscular Volume 90.4 fL (81.0-99.0); Mean Platelet Volume 8.4 fL (9.5-13.5); Platelet Count 293 10^3/uL (150-450); Red Blood Count 4.91 10^6/uL (4.20-5.40); Red Cell Distribution Width 12.6 % (11.0-15.0); White Blood Count 11.6 10^3/uL (4.0-11.0)
[2024-07-27 12:35] LABS: Bilirubin Urine NEGATIVE (NEGATIVE); Blood Urine SMALL (NEGATIVE); Clarity Urine CLEAR (CLEAR); Color Urine LT. YELLOW (YELLOW); Glucose Urine UA NEGATIVE (NEGATIVE); Ketones Urine NEGATIVE (NEGATIVE); Leukocyte Esterase Urine NEGATIVE (NEGATIVE); Nitrite Urine NEGATIVE (NEGATIVE); Protein Urine 30 mg/dL (NEG/TRACE); Urobilinogen Urine 0.2 EU/dL (0.2-1.0)
[2024-07-27 12:40] LABS: Creatinine Urine Random 67.06 mg/dL (20.00-300.00); Microalbum Creatinine Ratio Ur 259.4 mg/g (0.0-29.9); Microalbumin Urine Random 17.4 mg/dL (<=30.0); Protein Creatinine Ratio Urine 0.72; Total Protein Urine Random 48.1 mg/dL (<=11.9)
[2024-07-27 12:50] LABS: Anion Gap 16.9; BUN Creatinine Ratio 10.4; Calcium 9.3 mg/dL (8.5-10.1); Carbon Dioxide 25.6 mmol/L (21.0-32.0); Chloride 102 mmol/L (98-107); Estimated GFR (African America 59 (>=60 mL/min/1.73m^2); Estimated GFR (Non-African Ame 48 (>=60 mL/min/1.73m^2); Glucose 90 mg/dL (74-106); Potassium 3.5 mmol/L (3.5-5.1); Sodium 141 mmol/L (136-145); Uric Acid 4.5 mg/dL (2.6-6.0)
[2024-07-28 10:07] LABS: PTH, Intact 71 pg/mL (15-65)
== END 2024-07-27 11:40 | disposition home or self-care (01) ==
LOC: LAB 11:41
PROVIDERS: PCP Nurse Practitioner Family; Visit Provider Internal Medicine Nephrology
DX: E79.0 Hyperuricemia without signs of inflammatory arthritis and tophaceous disease (principal); E55.9 Vitamin D deficiency, unspecified; N18.31 Chronic kidney disease, stage 3a; E11.21 Type 2 diabetes mellitus with diabetic nephropathy; I12.9 Hypertensive chronic kidney disease with stage 1 through stage 4 chronic kidney disease, or unspecified chronic kidney disease
CPT/HCPCS: 36415; 80069; 81003; 82043; 82306; 82570; 83735; 83970; 84156; 84550; 85027

== ENCOUNTER 2025-01-18 11:21 | Outpatient (OUT) | payer MEDICARE, MEDICAID, SELFPAY ==
--- OUTSIDE RECORDS SUMMARY | 2025-01-18 11:29 | XMS_ITS | Patient Health Record ---
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 rodriguez 1 capsule Ora lly Three times a day; Duration: 30 day(s) Active hydroCHLOROthiazide 25 MG 1 tablet Orall y Once a day; Duration: 30 day(s) Active cloNIDine HCl 0.1 MG 1/2 tablet Orally Once a day; Duration: 30 day(s) Active Imipramine-Tofranil 25mg Dr. rodriguez one tablet orally 25mg in the morning and 25mg in the afternoon and 100mg at night Active Trifluoperazine HCl [address]mg dr[address] rodriguez 1 tablet Orally take 5mg in the morning and 5mg at night; Duration: 30 day(s) Active ALPRAZolam 0.5mg Dr. Rodriguez 0.5mg Orally four times a day Active Problems Problem Type SNOMED Code ICD Code Onset Dates Problem Status W/U Status Risk Notes Problem Essential hypertension, benign (401.1) Active confirmed Low Plan Of Treatment No Information Insurance Providers Payer Name Payer Address Payer Phone Subscriber Number Group Number Insured Name Patient Relationship to Insured Coverage Start Date Coverage End Date MEDICARE CGS 1 DARSHAN TAFOYA [facility] [place] [phone] [id number] CASSY JOSEPH Self - patient is the insured Medical (General) History Medical History History ICD Code depression panic disorder PTSD hypertension Surgical History Surgery Date(Month/Year) hysterectomy 2010 tonsillectomy [facility] 2001 Hospitalization History Reason Date(Month/Year) depression 03/2013
[2025-01-18 12:01] LABS: Hematocrit 42.4 % (36.0-48.0); Hemoglobin 14.3 g/dL (12.0-16.0); Mean Corpuscular HGB Conc 33.7 g/dL (29.9-35.2); Mean Corpuscular Hemoglobin 30.4 pg (26.7-34.0); Mean Corpuscular Volume 90.2 fL (81.0-99.0); Platelet Count 242 10^3/uL (150-450); Red Blood Count 4.70 10^6/uL (4.20-5.40); White Blood Count 9.6 10^3/uL (4.0-11.0)
[2025-01-18 12:20] LABS: Protein Creatinine Ratio Urine 0.73; Total Protein Urine Random 11.7 mg/dL (<=11.9)
[2025-01-18 12:21] LABS: Glucose Urine UA 500 mg/dL (NEGATIVE)
[2025-01-18 13:28] LABS: Albumin Level 4.2 g/dL (3.4-5.0); Anion Gap 13.5; Blood Urea Nitrogen 16.0 mg/dL (7.0-18.0); Calcium 9.4 mg/dL (8.5-10.1); Carbon Dioxide 27.5 mmol/L (21.0-32.0); Chloride 100 mmol/L (98-107); Estimated GFR (African America 54 (>=60 mL/min/1.73m^2); Estimated GFR (Non-African Ame 45 (>=60 mL/min/1.73m^2); Glucose 81 mg/dL (74-106); Magnesium 2.0 mg/dL (1.8-2.4); Potassium 4.0 mmol/L (3.5-5.1); Sodium 137 mmol/L (136-145); Uric Acid 3.4 mg/dL (2.6-6.0)
[2025-01-19 17:08] LABS: Albumin 3.8 g/dL (2.9-4.4); Alpha-1-Globulin 0.3 g/dL (0.0-0.4); Alpha-2-Globulin 1.0 g/dL (0.4-1.0); Gamma Globulin 1.1 g/dL (0.4-1.8)
== END 2025-01-18 11:22 | disposition home or self-care (01) ==
LOC: LAB 11:26
PROVIDERS: PCP Nurse Practitioner Family; Visit Provider Internal Medicine Nephrology
DX: E79.0 Hyperuricemia without signs of inflammatory arthritis and tophaceous disease (principal); N18.31 Chronic kidney disease, stage 3a; E11.21 Type 2 diabetes mellitus with diabetic nephropathy; I12.9 Hypertensive chronic kidney disease with stage 1 through stage 4 chronic kidney disease, or unspecified chronic kidney disease; E83.42 Hypomagnesemia
CPT/HCPCS: 36415; 80069; 81003; 82306; 82570; 83735; 84155; 84156; 84165; 84550; 85027